=== PATIENT | male | born 1935 | race Caucasian/White ===

== ENCOUNTER 2019-09-09 18:18 | Inpatient (IN) | payer OTHER ==
--- OUTSIDE RECORDS SUMMARY | 2019-09-09 18:21 | XMS REPORT ---
:1935 [facility] Jose Stephens. [address] [place] [address] Care Team Providers Name Role Phone Unavailable Unavailable Unavailable Payers Payer Name Policy Type Policy Number Effective Date Expiration Date Problems This patient has no known problems. Allergies, Adverse Reactions, Alerts Allergy Name Allergy Status Severity Reaction(s) Onset Inactive Treating Comments Type Date Date Clinician Penicillins DA Active U 2019-08 00:00:0 0 Medications This patient has no known medications. Results Test Description Test Time Test Comments Text Results Atomic Results Result Comments BASIC METABOLIC PANEL 2019-09-04 06:28:00 Test Item Value Reference Range Comments SODIUM (test code=NA) 141 MMOL/L 137-145 POTASSIUM (test code=K) 3.5 MMOL/L 3.5-5.1 CHLORIDE (test code=CL) 106 MMOL/L 98-107 CARBON DIOXIDE (test code=CO2) 26 MMOL/L 22-30 GLUCOSE (test code=GLU) 124 MG/DL 74-106 BLOOD UREA NITROGEN (test 18 MG/DL 9-20 code=BUN) GLOMERULAR FILTRATION RATE (test > 60 Reporting units: ml/min/1.73 m2 code=GFR) (Modified MDRD Formula)Reference Range: > or=60 ml/min/1.73 m2 CREATININE (test code=CREAT) 1.10 MG/DL 0.66-1.25 CALCIUM (test code=CA) 9.5 MG/DL 8.4-10.2 Comments to Country Singer: NURSE WILL BRING SPECIMEN TO LABIs this a LINE draw? NLIPID PROFILE (CORONARY RISK)2019-09-04 06:28:00 Test Item Value Reference Range Comments TRIGLYCERIDES (test code=TRIG) 64 MG/DL TRIGLYCERIDES REFERENCE RANGE:Normal: <150 mg/dLBorderline High: 150-199 mg/dLHigh: 200-499 mg/dLVery High: >=500 mg/dL CHOLESTEROL (test code=CHOL) 167 MG/DL <200 HDL CHOLESTEROL (test 56 MG/DL 40-59 code=HDL) LIPOPROTEIN LDL (test 100 MG/DL 0-99 code=LDL) OPTIMAL.........<100 mg/dLNEAR OPTIMAL/ABOVE OPTIMAL.........100-129 mg/dL BORDERLINE HIGH.........130-159 mg/dL HIGH.........160-189 mg/dL VERY HIGH.........>/=190 mg/dL Comments to Country Singer: NURSE WILL BRING SPECIMEN TO LABIs this a LINE draw? [id number] 06:28:00 Test Item Value Reference Range Comments MAGNESIUM (test code=MAG) 2.2 MG/DL 1.6-2.3 Comments to Country Singer: NURSE WILL BRING SPECIMEN TO LABIs this a LINE draw? NBASIC METABOLIC [id number] 06:17:00 Test Item Value Reference Range Comments SODIUM (test code=NA) 141 MMOL/L 137-145 POTASSIUM (test code=K) 3.5 MMOL/L 3.5-5.1 CHLORIDE (test code=CL) 106 MMOL/L 98-107 CARBON DIOXIDE (test code=CO2) 26 MMOL/L 22-30 GLUCOSE (test code=GLU) 124 MG/DL 74-106 BLOOD UREA NITROGEN (test 18 MG/DL 9-20 code=BUN) GLOMERULAR FILTRATION RATE > 60 Reporting units: ml/min/1.73 (test code=GFR) m2 (Modified MDRD Formula)Reference Range: > or=60 ml/min/1.73 m2 CREATININE (test code=CREAT) 1.10 MG/DL 0.66-1.25 CALCIUM (test code=CA) 9.5 MG/DL 8.4-10.2 Comments to Country Singer: NURSE WILL BRING SPECIMEN TO LABIs this a LINE draw? NLIPID PROFILE (CORONARY RISK)2019-09-04 06:17:00 Test Item Value Reference Range Comments TRIGLYCERIDES (test code=TRIG) 64 MG/DL TRIGLYCERIDES REFERENCE RANGE:Normal: <150 mg/dLBorderline High: 150-199 mg/dLHigh: 200-499 mg/dLVery High: >=500 mg/dL CHOLESTEROL (test code=CHOL) 167 MG/DL <200 HDL CHOLESTEROL (test 56 MG/DL 40-59 code=HDL) LIPOPROTEIN LDL (test MG/DL 0-99 code=LDL) Comments to Country Singer: NURSE WILL BRING SPECIMEN TO LABIs this a LINE draw? [id number] 06:17:00 Test Item Value Reference Range Comments MAGNESIUM (test code=MAG) 2.2 MG/DL 1.6-2.3 Comments to Country Singer: NURSE WILL BRING SPECIMEN TO LABIs this a LINE draw? NBASIC METABOLIC [id number] 06:16:00 Test Item Value Reference Range Comments SODIUM (test code=NA) 141 MMOL/L 137-145 POTASSIUM (test code=K) 3.5 MMOL/L 3.5-5.1 CHLORIDE (test code=CL) 106 MMOL/L 98-107 CARBON DIOXIDE (test code=CO2) 26 MMOL/L 22-30 GLUCOSE (test code=GLU) MG/DL 74-106 BLOOD UREA NITROGEN (test MG/DL 9-20 code=BUN) GLOMERULAR FILTRATION RATE > 60 Reporting units: ml/min/1.73 (test code=GFR) m2 (Modified MDRD Formula)Reference Range: > or=60 ml/min/1.73 m2 CREATININE (test code=CREAT) 1.10 MG/DL 0.66-1.25 CALCIUM (test code=CA) MG/DL 8.7-9.7 Comments to Country Singer: NURSE WILL BRING SPECIMEN TO LABIs this a LINE draw? NLIPID PROFILE (CORONARY RISK)2019-09-04 06:16:00 Test Item Value Reference Range Comments TRIGLYCERIDES (test code=TRIG) MG/DL CHOLESTEROL (test code=CHOL) 167 MG/DL <200 HDL CHOLESTEROL (test code=HDL) MG/DL 40-59 LIPOPROTEIN LDL (test code=LDL) MG/DL 0-99 Comments to Country Singer: NURSE WILL BRING SPECIMEN TO LABIs this a LINE draw? [id number] 06:16:00 Test Item Value Reference Range Comments MAGNESIUM (test code=MAG) MG/DL 1.6-2.3 Comments to Country Singer: NURSE WILL BRING SPECIMEN TO LABIs this a LINE draw? NBASIC METABOLIC [id number] 06:14:00 Test Item Value Reference Range Comments SODIUM (test code=NA) 141 MMOL/L 137-145 POTASSIUM (test code=K) 3.5 MMOL/L 3.5-5.1 CHLORIDE (test code=CL) 106 MMOL/L 98-107 CARBON DIOXIDE (test code=CO2) MMOL/L 22-30 GLUCOSE (test code=GLU) MG/DL 74-106 BLOOD UREA NITROGEN (test code=BUN) MG/DL 9-20 GLOMERULAR FILTRATION RATE (test code=GFR) CREATININE (test code=CREAT) MG/DL 0.66-1.25 CALCIUM (test code=CA) MG/DL 8.7-9.7 Comments to Country Singer: NURSE WILL BRING SPECIMEN TO LABIs this a LINE draw? NLIPID PROFILE (CORONARY RISK)2019-09-04 06:14:00 Test Item Value Reference Range Comments TRIGLYCERIDES (test code=TRIG) MG/DL CHOLESTEROL (test code=CHOL) MG/DL <200 HDL CHOLESTEROL (test code=HDL) MG/DL 40-59 LIPOPROTEIN LDL (test code=LDL) MG/DL 0-99 Comments to Country Singer: NURSE WILL BRING SPECIMEN TO LABIs this a LINE draw? [id number] 06:14:00 Test Item Value Reference Range Comments MAGNESIUM (test code=MAG) MG/DL 1.6-2.3 Comments to Country Singer: NURSE WILL BRING SPECIMEN TO LABIs this a LINE draw? NBASIC METABOLIC [id number] 06:13:00 Test Item Value Reference Range Comments SODIUM (test code=NA) MMOL/L 137-145 POTASSIUM (test code=K) MMOL/L 3.5-5.1 CHLORIDE (test code=CL) 106 MMOL/L 98-107 CARBON DIOXIDE (test code=CO2) MMOL/L 22-30 GLUCOSE (test code=GLU) MG/DL 74-106 BLOOD UREA NITROGEN (test code=BUN) MG/DL 9-20 GLOMERULAR FILTRATION RATE (test code=GFR) CREATININE (test code=CREAT) MG/DL 0.66-1.25 CALCIUM (test code=CA) MG/DL 8.7-9.7 Comments to Country Singer: NURSE WILL BRING SPECIMEN TO LABIs this a LINE draw? NLIPID PROFILE (CORONARY RISK)2019-09-04 06:13:00 Test Item Value Reference Range Comments TRIGLYCERIDES (test code=TRIG) MG/DL CHOLESTEROL (test code=CHOL) MG/DL <200 HDL CHOLESTEROL (test code=HDL) MG/DL 40-59 LIPOPROTEIN LDL (test code=LDL) MG/DL 0-99 Comments to Country Singer: NURSE WILL BRING SPECIMEN TO LABIs this a LINE draw? [id number] 06:13:00 Test Item Value Reference Range Comments MAGNESIUM (test code=MAG) MG/DL 1.6-2.3 Comments to Country Singer: NURSE WILL BRING SPECIMEN TO LABIs this a LINE draw? NPROTHROMBIN [id number] 05:51:00 Test Item Value Reference Range Comments PROTHROMBIN TIME PATIENT (test 10.2 SECONDS 9.6-11.6 code=PTP) INTERNATIONAL NORMAL RATIO 1.0 0.8-1.1 The INR is to be used only (test code=INR) for monitoring oral anticoagulanttherapy. INDICATION INR VALUE 1. Prophylaxis, deep venous thrombosis, including high risk surgery. 2.0 - 3.0 2. Prophylaxis, deep venous thrombosis, hip surgery, treatment for deep venous thrombosis or pulmonary prevention of systemic embolism in patients with valvular heart disease, atrial fibrillation, tissue heart valve, or acute myocardial infarction. 2.0 - 3.0 3. Mechanical prosthesis heart valves, recurrent systemic embolism. 3.0 - 4.5 Comments to Country Singer: NURSE WILL BRING SPECIMEN TO LABPTT [id number] 05:51:00 Test Item Value Reference Range Comments PTT ACTIVATED (test code=APTT) 27.3 SECONDS 22.0-33.0 Comments to Country Singer: NURSE WILL BRING SPECIMEN TO L[facility] W/AUTO [id number] 05:31:00 Test Item Value Reference Range Comments WHITE BLOOD CELL (test code=WBC) 7.1 K/MM3 3.8-9.8 RED BLOOD CELL (test code=RBC) 4.62 M/MM3 3.95-5.67 HEMOGLOBIN (test code=HGB) 13.6 G/DL 12.4-16.7 HEMATOCRIT (test code=HCT) 42.1 % 35.9-49.5 MEAN CELL VOLUME (test code=MCV) 91 fL 81.7-96.1 MEAN CELL HGB (test code=MCH) 29.4 pg 27.6-33.2 MEAN CELL HGB CONCETRATION (test code=MCHC) 32.3 % 32.9-35.5 RED CELL DISTRIBUTION WIDTH (test code=RDW) 13.7 % 12.1-15.2 PLATELET COUNT (test code=PLT) 248 K/MM3 129-368 MEAN PLATELET VOLUME (test code=MPV) 8.3 fl 7.4-10.4 NEUTROPHIL % (test code=NT%) 70.9 % 43-75 IMMATURE GRANULOCYTE % (test code=IG%) 1.0 % 0.0-2.0 LYMPHOCYTE % (test code=LY%) 12.7 % 14-44 MONOCYTE % (test code=MO%) 11.7 % 4-13 EOSINOPHIL % (test code=EO%) 2.7 % 0-6 BASOPHIL % (test code=BA%) 1.0 % 0-2 NUCLEATED RBC % (test code=NRBC%) 0.0 % 0-1.0 NEUTROPHIL # (test code=NT#) 5.01 K/mm3 2.0-7.6 IMMATURE GRANULOCYTE # (test code=IG#) 0.07 x10 3/uL 0-0.03 LYMPHOCYTE # (test code=LY#) 0.90 K/mm3 1.0-3.8 MONOCYTE # (test code=MO#) 0.83 K/mm3 0.1-0.8 EOSINOPHIL # (test code=EO#) 0.19 K/mm3 0.0-0.2 BASOPHIL # (test code=BA#) 0.07 K/mm3 0.0-0.2 NUCLEATED RBC # (test code=NRBC#) 0.00 K/mm3 0.0-0.1
[2019-09-09] MEDS ORDERED: ONDANSETRON 4 MG/2 ML VIAL ONE ×2 (19:25→21:35)
[2019-09-09] MEDS ORDERED: NA CHLORIDE 0.9% 500 ML ONE (19:25)
[2019-09-09] MEDS ORDERED: FAMOTIDINE 20 MG/2 ML VIAL IV ONE (19:25)
[2019-09-09 19:32] LABS: Absolute Lymphocytes (CBC) 0.5 K/uL (0.7-4.9); Basophils % 0.3 % (0-1.3); Hematocrit 41.4 % (39.6-49.0); Lymphocytes % 6.1 % (15.3-44.8); MPV 6.7 fL (7.6-11.3); RBC Red Blood Cell Count 4.77 M/uL (4.33-5.43)
[2019-09-09 19:44] LABS: Albumin 3.8 g/dL (3.4-5.0); Bilirubin Direct 0.3 mg/dL (0-0.2); Bilirubin Total 0.8 mg/dL (0.2-1.0); Potassium 3.4 mmol/L (3.5-5.1); Protein, Total 7.6 g/dL (6.4-8.2)
--- NOTE | 2019-09-09 19:48 | RAD REPORT ---
EXAM DESCRIPTION: RAD - Chest Single View - 09/09/2019 7:38 pm CLINICAL HISTORY: abdominal pain Chest pain. COMPARISON: Chest Pa And Lat (2 Views) dated 03/10/2018; Chest Single View dated 11/19/2016 FINDINGS: Portable technique limits examination quality. The lungs are grossly clear. The heart is mildly prominent in size. No displaced fractures. IMPRESSION: No acute intrathoracic process suspected.
--- NOTE | 2019-09-09 20:38 | RAD REPORT ---
EXAM DESCRIPTION: CTAbdomen Pelvis W Contrast - 09/09/2019 8:28 pm CLINICAL HISTORY: Abdominal pain. ABD PAIN COMPARISON: No comparisons TECHNIQUE: Biphasic CT imaging of the abdomen and pelvis was performed with 100 ml non-ionic IV cont rast. All CT scans are performed using dose optimization technique as appropriate and may include automated exposure control or mA/KV adjustment according to patient size. FINDINGS: Linear atelectasis is present in the left lung base. The liver demonstrates several hypodense lesions compatible with benign cysts. No aggressive liver le connie or biliary dilatation seen. The spleen, pancreas, adrenal glands and kidneys show no acute proce ss. Benign appearing bilateral renal cysts are present. Multiple dilated small bowel loops are present compatible with moderate mechanical small-bowel obstru ction. The loops are dilated to 4.7 cm maximally. A transition is noted along the left aspect of a la rge ventral hernia containing colon, small bowel and fat. This is presumed to represent a large william tomal hernia. Additionally a small ventral hernia is present to the right of midline containing a sma ll section of the small intestine. No evidence of pneumatosis. No evidence of significant lymphadenop athy. No free air or free fluid. No abscess. No suspicious bony findings. IMPRESSION: Moderately severe mechanical small bowel obstruction is present. 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
[2019-09-09] MEDS ORDERED: CIPROFLOXACIN 400mg IV 400 MG/200 ML BAG IV ONE (21:30)
--- NOTE | 2019-09-09 21:38 | ER ---
Nurse's Notes [facility] Name: Pernell Serrano Age: 83 yrs Sex: Male : 1935 Arrival Date: 09/09/2019 Time: 18:22 Bed 8 Private MD: Diagnosis: Small Bowel Obstruction;Nausea and vomiting Presentation: 09/09 18:34 Presenting complaint: states: pt has colostomy and has not been passing stool like iw he normally does, he has been belching and vomited once , had a heart cath Friday and had no stool, small amount of stool Friday, last night had large amount of stool, nothing today since 2 am. Transition of care: patient was not received from another setting of care. Onset of symptoms was September 04, 2019. Risk Assessment: Do you want to hurt yourself or someone else? Patient reports no desire to harm self or others. Initial Sepsis Screen: Does the patient meet any 2 criteria? No. Patient's initial sepsis screen is negative. Does the patient have a suspected source of infection? No. Patient's initial sepsis screen is negative. Care prior to arrival: None. 18:34 Method Of Arrival: Wheelchair iw 18:34 Acuity: ROBIN 3 iw Triage Assessment: 19:31 General: Appears in no apparent distress. Behavior is calm, cooperative. Pain: Denies rv pain. Historical: - Allergies: 18:37 PENICILLINS; iw - Home Meds: 18:39 losartan 100 mg oral tab 1 tab once daily [Active]; amlodipine 10 mg tab 1 tab once iw daily [Active]; aspirin 81 mg Oral TbEC 1 tab once daily [Active]; Colace oral oral [Active]; - PMHx: 18:39 colon cancer; Hypertension; iw - PSHx: 18:39 Colostomy; iw - Immunization history:: Adult Immunizations. - Social history:: Smoking status: Patient denies any tobacco usage or history of. - Ebola Screening: : Patient negative for fever greater than or equal to 101.5 degrees Fahrenheit, and additional compatible Ebola Virus Disease symptoms Patient denies exposure to infectious person Patient denies travel to an Ebola-affected area in the 21 days before illness onset No symptoms or risks identified at this time. Screenin:52 Abuse screen: Denies threats or abuse. Nutritional screening: No deficits noted. tw2 Tuberculosis screening: No symptoms or risk factors identified. Fall Risk Secondary diagnosis (15 points) impaired mobility. Assessment: 20:19 General: Appears in no apparent distress. Pain: Denies pain. Neuro: Level of rv Consciousness is awake, alert, obeys commands, Oriented to person, place, time, situation. Cardiovascular: Patient's skin is warm and dry. Respiratory: Airway is patent. GI: Reports bloating, diarrhea, gaseousness. GI: Colostomy site is clean and dry. Ostomy appliance is intact. Derm: Skin is intact. 20:51 Reassessment: JUST CAME BACK FROM CT SCAN. FAMILY UPDATED ON WAITING TIME. AWAITING rv RESULT OF CT SCAN. 21:35 Reassessment: Patient appears in no apparent distress at this time. Patient and/or rv family updated on plan of care and expected duration. Pain level reassessed. Patient is alert, oriented x 3, equal unlabored respirations, skin warm/dry/pink. PATIENT AND FAMILY UPDATED ON THE RESULTS OF DIAGNOSTICS. VERA PAGE AT BEDSIDE. PLAN OF CARE IS EXPLAINED. PATIENT AND FAMILY AGREED. Vital Signs: 18:39 BP 141 / 91; Pulse 98; Resp 16; Temp 98.5; Pulse Ox 98% on R/A; Weight 104.33 kg; iw Height 6 ft. 0 in. (182.88 cm); 19:30 BP 126 / 85; Pulse 88; Resp 17; Pulse Ox 93% on R/A; rv 20:00 BP 145 / 94; Pulse 86; Resp 17; Pulse Ox 93% on R/A; rv 20:47 BP 144 / 97; Pulse 90; Resp 18; Pulse Ox 94% on R/A; rv 21:34 BP 153 / 102; Pulse 101; Resp 26; Pulse Ox 97% on R/A; rv 22:00 BP 152 / 97; Pulse 98; Resp 16; Pulse Ox 96% on R/A; rv 22:30 BP 144 / 95; Pulse 95; Resp 17; Pulse Ox 96% on R/A; rv 23:30 BP 147 / 90; Pulse 87; Resp 16; Pulse Ox 96% on R/A; rv 09/10 00:00 BP 111 / 71; Pulse 95; Resp 16; Pulse Ox 96% on R/A; rv 00:52 BP 148 / 92; Pulse 89; Resp 17; Pulse Ox 95% on R/A; rv 09/09 18:39 Body Mass Index 31.19 (104.33 kg, 182.88 cm) iw ED Course: 09/09 18:22 Patient arrived in ED. mr 18:37 Triage completed. iw 18:39 Arm band placed on. iw 18:47 Bed in low position. Call light in reach. Adult w/ patient. tw2 18:48 Vera Talavera PA is PHCP. cp 18:48 Michael Van MD is Attending Physician. cp 19:03 Jake Abraham, SPENCER is Primary Nurse. rv 19:30 XRAY Chest (1 view) Sent. rv 19:30 Inserted saline lock: 18 gauge in right antecubital area, using aseptic technique. rv Blood collected. 19:39 XRAY Chest (1 view) In Process Unspecified. EDMS 19:52 Vera Montez MD is Attending Physician. cp 20:28 CT Abd/Pelvis - IV Contrast Only In Process Unspecified. EDMS 21:34 NGT: inserted 16 Fr. via right nare. verified placement of air over stomach, verified rv return of gastric contents, to intermittent suction. Returned gastric contents. Patient tolerated well. 21:37 Nazario Oro MD is Hospitalizing Provider. cp 09/10 00:52 No provider procedures requiring assistance completed. Patient admitted, IV remains in rv place. Administered Medications: 09/09 19:29 Drug: Pepcid 20 mg Route: IVP; Site: right antecubital; rv 21:36 Follow up: Response: No adverse reaction rv 19:30 Drug: Zofran 4 mg Route: IVP; Site: right antecubital; rv 21:35 Follow up: Response: No adverse reaction rv 19:30 Drug: NS 0.9% 250 ml Route: IV; Rate: bolus; Site: right antecubital; rv 21:36 Follow up: IV Status: Completed infusion; IV Intake: 250ml rv 21:33 Drug: Cipro 400 mg Volume: 200 ml; Route: IVPB; Infused Over: 60 mins; Site: right rv antecubital; 09/10 00:56 Follow up: IV Status: Completed infusion rv 09/09 21:37 Drug: Zofran 2 mg Route: IVP; Site: right antecubital; rv 09/10 00:56 Follow up: Response: No adverse reaction rv Intake: 09/09 21:36 IV: 250ml; Total: 250ml. rv Outcome: 21:38 Decision to Hospitalize by Provider. rosalino 09/10 00:52 Admitted to Tele accompanied by tech, via wheelchair, room 401, with chart, Report rv called to ja red Condition: good Discharge instructions given to patient, family, Instructed on the need for admit, Demonstrated understanding of instructions. 00:56 Patient left the ED. rv Signatures: Dispatcher [employer] NICOLE FoleyCherrie Irene, RN RN iw Vera Talavera PA PA Mery Jordan RN RN tw2 Jake Abraham RN RN rv Corrections: (The following items were deleted from the chart) 09/09 18:37 18:34 Presenting complaint: states: pt has not passing stool like he normally iw does, he has been belching and vomited once , had a heart cath Friday and had no stool, small amount of stool Friday, last night had large amount of stool, nothing today since 2 am iw
--- NOTE | 2019-09-09 21:38 | EDPHYS ---
Physician Documentation [facility] Name: Pernell Serrano Age: 83 yrs Sex: Male : 1935 Arrival Date: 09/09/2019 Time: 18:22 Bed 8 Private MD: Milan Lopez HPI: 09/09 19:20 This 83 yrs old Male presents to ER via Wheelchair with complaints of cp Colostomy problem. 19:20 The patient presents with abdominal pain. cp 19:20 Onset: The symptoms/episode began/occurred this morning. The symptoms do not radiate. cp Associated signs and symptoms: Pertinent positives: nausea, vomiting, Pertinent negatives: chest pain, fever, shortness of breath, testicular pain. The symptoms are described as constant. Historical: - Allergies: 18:37 PENICILLINS; iw - Home Meds: 18:39 losartan 100 mg oral tab 1 tab once daily [Active]; amlodipine 10 mg tab 1 tab once iw daily [Active]; aspirin 81 mg Oral TbEC 1 tab once daily [Active]; Colace oral oral [Active]; - PMHx: 18:39 colon cancer; Hypertension; iw - PSHx: 18:39 Colostomy; iw - Immunization history:: Adult Immunizations. - Social history:: Smoking status: Patient denies any tobacco usage or history of. - Ebola Screening: : Patient negative for fever greater than or equal to 101.5 degrees Fahrenheit, and additional compatible Ebola Virus Disease symptoms Patient denies exposure to infectious person Patient denies travel to an Ebola-affected area in the 21 days before illness onset No symptoms or risks identified at this time. ROS: 19:25 Constitutional: Negative for body aches, chills, fever. cp 19:25 Eyes: Negative for injury, pain, redness, and discharge. cp 19:25 ENT: Negative for drainage from ear(s), ear pain, sore throat, difficulty swallowing, difficulty handling secretions. 19:25 Cardiovascular: Negative for chest pain. 19:25 Respiratory: Negative for cough, shortness of breath, wheezing. 19:25 Abdomen/GI: Positive for abdominal pain, nausea, vomiting, Negative for diarrhea. 19:25 Back: Negative for radiated pain. 19:25 : Negative for urinary symptoms. 19:25 Skin: Negative for rash. 19:25 Neuro: Negative for altered mental status, headache, weakness. 19:25 All other systems are negative. Exam: 19:35 Constitutional: The patient appears in no acute distress, alert, awake, cp non-diaphoretic, non-toxic, well developed, well nourished, uncomfortable. 19:35 Head/Face: Normocephalic, atraumatic. cp 19:35 Eyes: Periorbital structures: appear normal, Conjunctiva: normal, no exudate, no injection, Sclera: no appreciated abnormality, Lids and lashes: appear normal, bilaterally. 19:35 ENT: External ear(s): are unremarkable, Nose: is normal, Mouth: Lips: moist, Oral mucosa: pink and intact, moist, Posterior pharynx: Airway: no evidence of obstruction, patent. 19:35 Chest/axilla: Inspection: normal, Palpation: is normal, no crepitus, no tenderness. 19:35 Cardiovascular: Rate: normal, Rhythm: regular. 19:35 Respiratory: the patient does not display signs of respiratory distress, Respirations: normal, no use of accessory muscles, no retractions, no splinting, no tachypnea, labored breathing, is not present, Breath sounds: are clear throughout, no decreased breath sounds, no stridor, no wheezing. 19:35 Abdomen/GI: Inspection: distension, that is mild, in the abdomen diffusely, colostomy LLQ abdomen, Bowel sounds: active, all quadrants, Palpation: soft, in all quadrants, moderate abdominal tenderness, in all quadrants, rebound tenderness, is not appreciated, voluntary guarding, is elicited in all quadrants. 19:35 Neuro: Orientation: to person, place \T\ time. Mentation: is normal. 21:16 ECG was reviewed by the Attending Physician. cp Vital Signs: 18:39 BP 141 / 91; Pulse 98; Resp 16; Temp 98.5; Pulse Ox 98% on R/A; Weight 104.33 kg; iw Height 6 ft. 0 in. (182.88 cm); 19:30 BP 126 / 85; Pulse 88; Resp 17; Pulse Ox 93% on R/A; rv 20:00 BP 145 / 94; Pulse 86; Resp 17; Pulse Ox 93% on R/A; rv 20:47 BP 144 / 97; Pulse 90; Resp 18; Pulse Ox 94% on R/A; rv 21:34 BP 153 / 102; Pulse 101; Resp 26; Pulse Ox 97% on R/A; rv 22:00 BP 152 / 97; Pulse 98; Resp 16; Pulse Ox 96% on R/A; rv 22:30 BP 144 / 95; Pulse 95; Resp 17; Pulse Ox 96% on R/A; rv 23:30 BP 147 / 90; Pulse 87; Resp 16; Pulse Ox 96% on R/A; rv 09/10 00:00 BP 111 / 71; Pulse 95; Resp 16; Pulse Ox 96% on R/A; rv 00:52 BP 148 / 92; Pulse 89; Resp 17; Pulse Ox 95% on R/A; rv 09/09 18:39 Body Mass Index 31.19 (104.33 kg, 182.88 cm) iw MDM: 09/09 19:03 Patient medically screened. cp 21:15 Data reviewed: vital signs, nurses notes, lab test result(s), EKG, radiologic studies, cp CT scan. Physician consultation: Nazario Oro MD was called at 20:10, was contacted at 20:15, regarding admission, to the telemetry unit. patient's condition. 09/09 19:03 Order name: Basic Metabolic Panel; Complete Time: 19:52 cp 09/09 21:01 Interpretation: Normal except: K 3.4; GLUC 141; GFR 54. cp 09/09 19:03 Order name: CBC with Diff; Complete Time: 19:52 cp 09/09 21:03 Interpretation: Normal except: MPV 6.7; RAZA% 84.6; LYM% 6.1; LYMA 0.5. cp 09/09 19:03 Order name: Creatinine for Radiology; Complete Time: 19:52 cp 09/09 19:03 Order name: Hepatic Function; Complete Time: 19:52 cp 09/09 19:03 Order name: Lipase; Complete Time: 19:52 cp 09/10 00:44 Order name: Basic Metabolic Panel EDMS 09/09 19:14 Order name: XRAY Chest (1 view); Complete Time: 19:52 cp 09/10 00:44 Order name: Basic Metabolic Panel EDMS 09/10 00:44 Order name: CBC with Automated Diff EDMS 09/10 00:44 Order name: CBC with Automated Diff EDMS 09/10 00:44 Order name: Lipase EDOK 09/10 00:44 Order name: Lipase EDOK 09/10 00:44 Order name: Liver (Hepatic) Function EDOK 09/10 00:44 Order name: Liver (Hepatic) Function EDOK 09/09 19:03 Order name: IV Saline Lock; Complete Time: 19:30 cp 09/09 19:03 Order name: Labs collected and sent; Complete Time: 19:30 cp 09/09 19:14 Order name: EKG; Complete Time: 19:15 cp 09/09 19:14 Order name: EKG - Nurse/Tech; Complete Time: 21:05 cp 09/09 19:53 Order name: CT Abd/Pelvis - IV Contrast Only; Complete Time: 20:59 cp 09/09 21:01 Interpretation: Report reviewed. cp 09/09 21:05 Order name: NPO; Complete Time: 21:25 cp 09/09 21:05 Order name: NG Tube; Complete Time: 21:25 cp 09/10 00:44 Order name: CONS Physician Consult EDOK 09/10 00:44 Order name: NPO EDOK 09/10 00:44 Order name: NPO EDOK EC:16 Rate is 90 beats/min. Rhythm is regular. NC interval is prolonged at 230 msec. QRS cp interval is normal. QT interval is normal. Interpreted by me. Reviewed by me. Administered Medications: 19:29 Drug: Pepcid 20 mg Route: IVP; Site: right antecubital; rv 21:36 Follow up: Response: No adverse reaction rv 19:30 Drug: Zofran 4 mg Route: IVP; Site: right antecubital; rv 21:35 Follow up: Response: No adverse reaction rv 19:30 Drug: NS 0.9% 250 ml Route: IV; Rate: bolus; Site: right antecubital; rv 21:36 Follow up: IV Status: Completed infusion; IV Intake: 250ml rv 21:33 Drug: Cipro 400 mg Volume: 200 ml; Route: IVPB; Infused Over: 60 mins; Site: right rv antecubital; 09/10 00:56 Follow up: IV Status: Completed infusion rv 09/09 21:37 Drug: Zofran 2 mg Route: IVP; Site: right antecubital; rv 09/10 00:56 Follow up: Response: No adverse reaction rv Disposition: 09:25 Co-signature as Attending Physician, Milan Montez MD I agree with the assessment and jorge plan of care. Disposition: 09/09/19 21:38 Hospitalization ordered by Nazario Oro for Inpatient Admission. Preliminary diagnosis are Small Bowel Obstruction, Nausea and vomiting. - Bed requested for Telemetry/MedSurg (Inpatient). - Status is Inpatient Admission. rv - Condition is Stable. - Problem is new. - Symptoms have improved. UTI on Admission? No Signatures: Dispatcher [employer] EDOK Milan Montez MD MD cha Williams, Irene, RN RN Milan Talavera PA PA cp Jake Abraham RN RN rv Cristiane Garcia ar5 Corrections: (The following items were deleted from the chart) 09/09 21:03 21:01 Normal except: MPV 6.7; RAZA% 84.6; LYM% 6.1. cp cp 09/10 00:25 09/09 21:38 Hospitalization Ordered by Nazario Oro MD for Inpatient Admission. ar5 Preliminary diagnosis is Small Bowel Obstruction; Nausea and vomiting. Bed requested for Telemetry/MedSurg (Inpatient). Status is Inpatient Admission. Condition is Stable. Problem is new. Symptoms have improved. UTI on Admission? No. cp 09/10 00:56 00:25 09/09/2019 21:38 Hospitalization Ordered by Nazario Oro MD for Inpatient rv Admission. Preliminary diagnosis is Small Bowel Obstruction; Nausea and vomiting. Bed requested for Telemetry/MedSurg (Inpatient). Status is Inpatient Admission. Condition is Stable. Problem is new. Symptoms have improved. UTI on Admission? No. ar5
[2019-09-10] MEDS ORDERED: ONDANSETRON 4 MG/2 ML VIAL IV PRN (00:41)
[2019-09-10] MEDS ORDERED: MORPHINE 4 MG/ML SYR IV PRN (00:41)
[2019-09-10 01:19] VITALS: O2SAT 95
[2019-09-10] MEDS: D5 0.45 NS 1,000 ML IV SCH ×2 (01:34→22:09)
[2019-09-10] MEDS: METRONIDAZOLE 500mg IVPB 500 MG/100 ML BAG IV SCH ×3 (01:37→17:49)
[2019-09-10 02:10] VITALS: BMI 31.1
[2019-09-10 04:55] LABS: Absolute Lymphocytes (CBC) 0.7 K/uL (0.7-4.9); Basophils % 0.4 % (0-1.3); Hematocrit 37.2 % (39.6-49.0); Lymphocytes % 7.3 % (15.3-44.8); MPV 6.6 fL (7.6-11.3); RBC Red Blood Cell Count 4.24 M/uL (4.33-5.43)
[2019-09-10 05:18] LABS: Albumin 3.2 g/dL (3.4-5.0); Bilirubin Direct 0.2 mg/dL (0-0.2); Bilirubin Total 0.7 mg/dL (0.2-1.0); Potassium 3.6 mmol/L (3.5-5.1); Protein, Total 6.7 g/dL (6.4-8.2)
[2019-09-10 05:24] LABS: Urine Appearance CLEAR; Urine Bilirubin NEGATIVE (NEG); Urine Blood NEGATIVE (NEG); Urine Color YELLOW; Urine Glucose NEGATIVE (NEG); Urine Protein NEGATIVE (NEG); Urine Specific Gravity >=1.030 (1.005-1.030); Urine Urobilinogen 0.2 mg/dL (0.2-1.0); Urine pH 7.5 (5.0-7.0)
[2019-09-10 05:46] LABS: Urine Microscopic Reflex NO UMIC
[2019-09-10] MEDS: CIPROFLOXACIN 400mg IV 400 MG/200 ML BAG IV SCH ×2 (08:01→22:09)
--- NOTE | 2019-09-10 08:35 | EKG ---
Test Date: 2019-09-09 Test Time: 21:00:11 Director Business Development: LESLIE MEASUREMENT RESULTS: Intervals: Rate: 90 OH: 230 QRSD: 94 QT: 384 QTc: 469 [place]: P: 0 OH: 230 QRS: -2 T: -16 INTERPRETIVE STATEMENTS: Sinus rhythm with 1st degree AV block Inferior infarct, age undetermined Abnormal ECG Compared to ECG 11/19/2016 00:04:03 First degree AV block now present Myocardial infarct finding still present Electronically Signed On 09-10-19 08:34:37 BILLING ADJUDICATOR by Pérez Smith
--- NOTE | 2019-09-10 14:40 | P.HP ---
Date of Service: 09/10/19 PC: Specifically new to the emergency room with severe pain for diagnosis and treatment. HPC: The patient has a CT scan in about a week ago with oral contrast. After a time to be in the field abdominal discomfort in his abdomen. It has been causing intermittent bouts of pain and discomfort. Last night became various, and he also noted that his colostomy has not been working. Presented for examination PMH: Coronary artery disease PSHx: Previous abdominal perineal resection with end colostomy for colon cancer. 5 years ago. Being followed in [facility] [place]. SOC: Allergic to penicillin SYS REVIEW: No wheezes, shortness of breath. No chest pain or palpitations. Denies any real urinary complaints. Colostomies sees me working well, but has noticed his abdomen has gotten bigger over the last couple years. O/E awake alert bowel sounds are stable HEENT: Nasogastric tube in place with minimal drainage Chest: Chest fluid equal bilaterally ABD: Has a colostomy, looks good, abdomen is soft, nontender no masses are palpable no evidence of any incarceration of this parastomal hernia LOCO: Intact DATA: CT scan shows possible parastomal hernia or other cause of the early SBO IMPRESSION: SBO appears to have resolved PLAN: This patient, who presented with severe abdominal pain and the possibility of a parastomal hernia appears to have had the issue result. We will place a middle down through his NG tube, removed the NG tube, start him on some clear liquids and most likely discharge him in a.m.. In the interim time. He will receive IV fluids for dehydration. This plan has been explained to him and he is quite content as are his family.
[2019-09-10] MEDS ORDERED: MINERAL OIL 30 ML UCUP PO ONE ×2 (15:58→23:00)
--- NOTE | 2019-09-10 21:06 | HP ---
Date of Admission: 09/10/2019 History Of Present Illness: An 83-year-old male who had a colostomy bag that was placed because of s urgery of colon cancer. He has been doing well, but he presented to the emergency room the day of hi s admission because of abdominal pain, generalized and he thought that the colostomy bag is not worki ng. His evaluation, which included an abdominal CAT scan showed a small-bowel obstruction mechanical . No masses were detected by that. The patient had mild nausea, but no vomiting. He voiced no othe r complaints. Review of Systems: Gastrointestinal: As above. Cardiovascular: No complaints. Genitourinary: No complaints. Skeletomuscular: No complaints. Respiratory: No complaints. Neurological: No complaints. Past Medical History: 1.As above, colon cancer, status post resection on colostomy. 2.Hypertension. Social History: No smoking, alcohol, or drug abuse history. Family History: Noncontributing. Medications: Include amlodipine 10 mg p.o. daily, aspirin 81 mg p.o. daily, atorvastatin 10 mg p.o. daily, Colace 100 mg p.o. daily, and losartan 100 mg p.o. daily. Allergies: PENICILLIN. Physical Examination: Vital Signs: Blood pressure 125/70, pulse 80, temperature 97.3. Heart: Regular rate and rhythm. Chest: Clear to auscultation. Abdomen: At the time of examining the patient, it was soft and nontender and his bowel sounds were h eard. Neurologic: Alert, oriented, nonfocal. Grossly intact. Extremities: No known sounds. Peripheral pulses are felt and normal. Pulse oximetry at 95%. 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 Chest x-ray, no acute pathology. Electrocardiogram, sinus rhythm with third-degree AV block a nd inferior Q-waves. Laboratory Data: White cell count 9.5, hemoglobin 12.6, hematocrit 37.2, and platelets 249. Sodium 142, potassium 3.6, chloride 109, bicarb 28, BUN 13, creatinine 1.19, GFR 58, albumin 3.2. Assessment And Plan: Small bowel obstruction, most likely from adhesions. The patient has been put n.p.o. and Dr. Graham is being consulted to see the patient. We also put the patient on prophylaxis Cipro and metronidazole, put him on Zofran for nausea, vomiting. At this time, the patient is doing well. He is also on IV fluids. It seems that his obstruction has resolved with bowel rest. We ni l go ahead and try a liquid diet and if it is well tolerated, expecting discharging the patient in morning. Look orders for details. ANNA/ALINA Voice ID: [id number]
[2019-09-11] MEDS: METRONIDAZOLE 500mg IVPB 500 MG/100 ML BAG IV SCH ×2 (00:33→09:00)
[2019-09-11] MEDS: CIPROFLOXACIN 400mg IV 400 MG/200 ML BAG IV SCH (09:00)
[2019-09-11 12:03] VITALS: BP 134/67; TEMP 97.3
--- NOTE | 2019-09-11 13:22 | DS ---
Date of Discharge: 09/11/2019 History: An 83-year-old male was admitted to the hospital because of small intestinal obstruction, m echanical. When he presented to the emergency room with abdominal pain, patient had colostomy after surgery for colon cancer. Past Medical History: As per admit note. Social History: As per admit note. Family History: As per admit note. Medications: As per admit note. Allergies: PER ADMIT NOTE. Physical Examination: As per admit note. Diagnostic Data: As per admit note. Hospital Course: Patient was admitted to the hospital. He was put n.p.o. We monitored the patient and Dr. Woo of Surgery have seen him with us. We will also put the patient on IV metronidazole a nd Cipro prophylaxis for infection. The patient apparently had possible adhesions that have caused s mall intestine mechanical obstruction with the patient resting and being n.p.o. That mechanical obst ruction was resolved and the patient had good bowel sounds and here his abdominal pain was released. He had after that good bowel motion and passing gases and tolerated liquid diet. At this point, I t hought the patient stable enough after also consulting with Dr. Woo to do so and to follow up with me and to follow up with Dr. Woo as per him. Look discharge orders for details. MFS/MODL Voice ID: [id number] Report ID: [id number]
== END 2019-09-11 12:20 | disposition home or self-care (01) | DRG 390 ==
LOC: ER 18:18 → 4TH 09-10 00:41
PROVIDERS: ADMIT Internal Medicine; ATTEND Internal Medicine
DX: K56.609 Unspecified intestinal obstruction, unspecified as to partial versus complete obstruction (principal); I25.10 Atherosclerotic heart disease of native coronary artery without angina pectoris; Z85.038 Personal history of other malignant neoplasm of large intestine; Z93.3 Colostomy status; Z88.0 Allergy status to penicillin; I10 Essential (primary) hypertension
CPT/HCPCS: 36415; 71045; 74177; 80048; 80076; 81003; 83690; 85025; 93005; 96365; 96366; 96375; 99285; J0744; J2405; J7040; J7799; Q9967

== ENCOUNTER 2023-06-12 14:29 | Emergency (ER) | payer OTHER ==
--- OUTSIDE RECORDS SUMMARY | 2023-06-12 14:31 | XMS REPORT | Continuity of Care Document ---
:1935 Author Organization [facility] t Address [address] [place] [id number] Care Team Providers Name Role Phone [phone] Primary Care Physician Unavailable SYSTEM, PROVIDER NOT IN Attending Clinician Unavailable Nazario Oro Attending Clinician Unavailable BENJAMIN SANCHES Attending Clinician Unavailable BRIAN VARGAS Attending Clinician Unavailable SOHAN COBB Attending Clinician Unavailable Delano Rojas Attending Clinician Unavailable Payers Payer Name Policy Type Policy Number Effective Date Expiration Date S devon MEDICARE PART A [id number] 1999 AND B 00:00:00 AETNA O [id number] 2000 00:00:00 AETNA NON [id number] CONTRACTED 00:00:00 AETNA 53 [id number] [facility] AETNA MEDICARE 53 [id number] Common PPO [facility] Problems Condition Condition Condition Status Onset Resolution Last Treating Co mments Source Name Details Category Date Date Treatment Clinician Date [id number] History of Problem Co mmon pulmonary Spirit embolism - [facility] [id number] Essential Problem Comm on hypertensi Spirit on - [facility] [id number] Pneumonia Problem Com mon of left Spirit lower lobe - [facility] due to [facility] [id number] S/P Problem Common radiation Spirit therapy - [facility] [id number] Other Problem 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 intermedia [facility] recurrence Medica l risk Center (stage T2b-c or [place] 7 or PSA 10-20) [id number] Benign Problem Common prostatic Spirit hyperplasi - [facility] a with [facility] urinary Medical tract Center symptoms [id number] History of Problem Co mmon colon Spirit cancer - [facility] Allergies, Adverse Reactions, Alerts Allergy Allergy Status Severity Reaction(s) Onset Inactive Treating Comm ents Source Name Type Date Date Clinician [place] DA Active U 2020-0 [facility] 09-[facility] 00:[facility]: [address] Pen[place] DA Active U UNKNOWN 2020-0 [facility] ins 09-03 00:00: [address] PENICILL Drug Active Itching 2015-0 MD INS Class 4-24 Anderso 00:00: n 00 PENICILL Drug Active Itching 2015-0 MD INS Class 4-24 Anderso 00:00: n 00 PENICILL Drug Active Itching 2015-0 MD INS Class 4-24 Anderso 00:00: n 00 PENICILL Drug Active Itching 2016-0 MD INS Class 4-24 Anderso 00:00: n 00 Social History Social Habit Start Date Stop Date Quantity Comments Source History of Tobacco Use Co mmon [facility] Sex Assigned At Com mon [facility] Smoking Status Start Date Stop Date Source Never Smoker Common [facility] Medications Ordered Filled Start Stop Current Ordering Indication Dosage Frequency Signature Comments Components Source Medication Medication Date Date Medication? Clinician (SIG) Name Name Shan Machadoeli 2022-0 No 22.5mg Commo n 6-14 Spirit 00:00: - [facility] Jeannettekodymarta Machadoeli 2023-0 No 22.5mg Commo n 6-14 Spirit 00:00: - [facility] Myrbetriq Myrbetriq 2022-0 No 1{table QD Myrbetriq 25 MG 25 MG 3-15 t} 25 MG 00:00: 00 Eligard Jeannettegard 2022-0 No 22.5mg Commo n 3-15 Spirit 00:00: - [facility] Myrbetriq Myrbetriq 2022-0 No 1{table QD Myrbetriq 25 MG 25 MG 3-15 t} 25 MG 00:00: 00 Hardeepd Hardeepd 2022-0 No 22.5mg Commo n 3-15 Spirit 00:00: - [facility] Shan Meierd 2021-1 No 22.5mg Commo n 2-14 Spirit 00:00: - [facility] Shan Meierd 2021-1 No 22.5mg Commo n 2-14 Spirit 00:00: - [facility] Shan Meierd 2021-1 No 22.5mg Commo n 2-14 Spirit 00:00: - [facility] Bicalutamid Bicalutamid 2021-08 No 1{table QD Bicalutami e 50 MG e 50 MG 1-10 t} de 50 MG 00:00: 00 Bicalutamid Bicalutamid 2021-08 No 1{table QD Bicalutami e 50 MG e 50 MG 1-10 t} de 50 MG 00:00: 00 Bicalutamid Bicalutamid 2021-08 No 1{table QD Bicalutami e 50 MG e 50 MG 1-10 t} de 50 MG 00:00: 00 Bicalutamid Bicalutamid 2021-08 No 1{table QD Bicalutami e 50 MG e 50 MG 1-10 t} de 50 MG 00:00: 00 Albuterol Albuterol No 2{puffs Albuterol Sulfate HFA Sulfate HFA 7-24 } Sulfate 108 (90 108 (90 00:00: HFA 108 Base) Base) 00 (90 Base) MCG/ACT MCG/ACT MCG/ACT Albuterol Albuterol No 2{puffs Albuterol Sulfate HFA Sulfate HFA 7-24 } Sulfate 108 (90 108 (90 00:00: HFA 108 Base) Base) 00 (90 Base) MCG/ACT MCG/ACT MCG/ACT Albuterol Albuterol No 2{puffs Albuterol Sulfate HFA Sulfate HFA 7-24 } Sulfate 108 (90 108 (90 00:00: HFA 108 Base) Base) 00 (90 Base) MCG/ACT MCG/ACT MCG/ACT Albuterol Albuterol No 2{puffs Albuterol Sulfate HFA Sulfate HFA 7-24 } Sulfate 108 (90 108 (90 00:00: HFA 108 Base) Base) 00 (90 Base) MCG/ACT MCG/ACT MCG/ACT Albuterol Albuterol No 2{puffs Albuterol Sulfate HFA Sulfate HFA 7-24 } Sulfate 108 (90 108 (90 00:00: HFA 108 Base) Base) 00 (90 Base) MCG/ACT MCG/ACT MCG/ACT Norvasc Norvasc No Norvasc Norvasc Norvasc No Norvasc Norvasc Norvasc No Norvasc Flomax 0.4 Flomax 0.4 No 2{capsu QD Flomax 0.4 MG MG les} MG Norvasc Norvasc No Norvasc Flomax 0.4 Flomax 0.4 No 2{capsu QD Flomax 0.4 MG MG les} MG Norvasc Norvasc No Norvasc Vital Signs Vital Name Observation Time Observation Value Comments Source height 2022-07-31 08:30:00 [facility] weight 2022-07-31 08:30:00 224 [lb_av] [facility] temperature 2022-07-31 08:30:00 7.6 [degF] [facility] bmi 2022-07-31 08:30:00 30.8 kg/m2 [facility] oximetry 2022-07-31 08:30:00 98 % [facility] respiratory rate 2022-07-31 08:30:00 18 /min Comm on [facility] blood pressure 2022-07-31 08:30:00 131 mm[Hg] [facility] - systolic [facility] blood pressure 2022-07-31 08:30:00 61 mm[Hg] [facility] - diastolic [facility] height 2022-06-27 17:45:00 Common S pirit - [facility] weight 2022-06-27 17:45:00 224.4 [lb_av] [facility] temperature 2022-06-27 17:45:00 98.3 [degF] Common S pirit - [facility] bmi 2022-06-27 17:45:00 30.86 kg/m2 Common S pirit - [facility] oximetry 2022-06-27 17:45:00 97 % Common S pirit - [facility] respiratory rate 2022-06-27 17:45:00 16 /min Comm on [facility] blood pressure 2022-06-27 17:45:00 132 mm[Hg] [facility] - systolic [facility] blood pressure 2022-06-27 17:45:00 76 mm[Hg] [facility] - diastolic [facility] oximetry 2022-06-17 14:15:00 98 % Common S pirit - [facility] respiratory rate 2022-06-17 14:15:00 16 /min Comm on [facility] blood pressure 2022-06-17 14:15:00 134 mm[Hg] [facility] - systolic [facility] blood pressure 2022-06-17 14:15:00 71 mm[Hg] [facility] - diastolic [facility] height 2022-06-17 14:15:00 Common S pirit - [facility] weight 2022-06-17 14:15:00 223 [lb_av] Common S pirit - [facility] temperature 2022-06-17 14:15:00 97.6 [degF] Common S pirit - [facility] bmi 2022-06-17 14:15:00 30.67 kg/m2 Common S pirit - [facility] height 2021-11-06 09:30:00 [facility] weight 2021-11-06 09:30:00 220 [lb_av] [facility] temperature 2021-11-06 09:30:00 98.6 [degF] [facility] bmi 2021-11-06 09:30:00 30.25 kg/m2 [facility] oximetry 2021-11-06 09:30:00 99 % [facility] respiratory rate 2021-11-06 09:30:00 16 /min Comm on [facility] blood pressure 2021-11-06 09:30:00 12 mm[Hg] Common [facility] systolic [facility] blood pressure 2021-11-06 09:30:00 7 mm[Hg] [facility] diastolic [facility] Procedures This patient has no known procedures. Encounters Start End Encounter Admission Attending Care Care Encounter Source Date/Time Date/Time Type Type Clinicians Facility Department ID 2023-02-13 Outpatient SYSTEM, [facility] [id number] 15:21:22 PROVIDER Eduardo o n 2023-01-03 Outpatient SYSTEM, [facility] [id number] 08:23:46 PROVIDER Eduardo o n 2022-10-24 [id number] Common 08:06:02 [place] [id number] [facility] 2022-06-27 Outpatient DEBBIE Oro [facility] [id number] Common 19:01:00 [place] [id number] [facility] 2021-11-21 Outpatient SYSTEM, [facility] [id number] 14:05:45 PROVIDER Eduardo o n 2021-11-06 Outpatient DEBBIE Oro [facility] [id number] Common 09:24:04 [place] [facility] 2021-09-20 Outpatient [facility] [id number] 18:25:43 Anderso n 2021-08-29 Outpatient SYSTEM, [facility] [id number] 12:08:55 PROVIDER Eduardo o n 2020-04-18 Outpatient SYSTEM, [facility] [id number] 13:27:[address] 2022-07-31 2022-07-31 OFFICE STLMLC STLMLC [id number] Co mmon 00:00:00 00:00:00 VISIT EST Spir it PT LEVEL 3 - [facility] 2022-06-27 2022-06-27 OFFICE STLMLC STLMLC [id number] Co mmon 00:00:00 00:00:00 VISIT Spirit ESTAB PT - [facility] LEVEL 4 [facility] 2022-06-17 2022-06-17 OFFICE STLMLC STLMLC [id number] Co mmon 00:00:00 00:00:00 VISIT EST Spir it PT LEVEL 3 - [facility] 2022-04-24 2022-04-24 (TEL) STLMLC STLMLC [id number] Co mmon 00:00:00 00:00:00 Spirit - [facility] 2021-11-06 2021-11-06 OFFICE STLMLC STLMLC [id number] Co mmon 00:00:00 00:00:00 VISIT NEW Spir it PT LEVEL 2 - [facility] 2021-03-16 2021-03-16 Outpatient BENJMAIN SLAUGHTER [facility] MDA [id number] 00:00:00 00:00:[address] 2020-03-10 2020-03-10 Outpatient EL ALICIA, MDA MDA [id number] 12:13:44 12:13:[address] 2020-03-09 2020-03-09 Outpatient EL ALICIA, MDA MDA [id number] 00:00:00 00:00:[address] 2020-03-08 2020-03-08 Outpatient EL REZA, MINI MDA MDA [id number] 08:08:33 23:59:[address] 2020-03-08 2020-03-08 Outpatient EL REZA, MINI MDA MDA [id number] 08:38:46 08:38:[address] 2020-02-29 2020-02-29 Outpatient EL ALICIA, MDA MDA [id number] 00:00:00 00:00:[address] 2019-09-04 2019-09-04 Outpatient DARYN Rojas SURG [id number] [facility] 07:30:00 07:30:00 Salim [facility] Results Test Description Test Time Test Comments Results Result Comments Source BASIC METABOLIC PANEL 2019-09-04 06:28:00 Test Item Value Reference Range Interpretation Comme nts SODIUM (test code = NA) 141 MMOL/L 137-145 N POTASSIUM (test code = K) 3.5 MMOL/L 3.5-5.1 N CHLORIDE (test code = CL) 106 MMOL/L 98-107 N CARBON DIOXIDE (test code = CO2) 26 MMOL/L 22-30 N GLUCOSE (test code = GLU) 124 MG/DL 74-106 H BLOOD UREA NITROGEN (test code = 18 MG/DL 9-20 N BUN) GLOMERULAR FILTRATION RATE (test > 60 Reporting units: ml/min/1.73 code = GFR) m2 (Modified RD Formula)Referen ce Range: > or = 60 ml/min/1.7 3 m2 CREATININE (test code = CREAT) 1.10 MG/DL 0.66-1.25 N CALCIUM (test code = CA) 9.5 MG/DL 8.4-10.2 N Comments to Cheese Blender: NURSE WILL BRING SPECIMEN TO LABIs this a LINE draw? N LIPID PROFILE (CORONARY RISK)2019-09-04 06:28:00 Test Item Value Reference Range Interpretation Comments TRIGLYCERIDES (test 64 MG/DL TRIGLYCE RIDES code = TRIG) REFERENCE RANGE:Normal: < 150 mg/dLBorderline High: 150-199 mg/dLHi gh: 200-499 mg/dLVe ry High: >=500 mg/ dL CHOLESTEROL (test code 167 MG/DL <200 = CHOL) HDL CHOLESTEROL (test 56 MG/DL 40-59 N code = HDL) LIPOPROTEIN LDL (test 100 MG/DL 0-99 H OPTIM AL.........<100 code = LDL) mg/dLNEAR OPTIMAL/ABOVE OPTIMAL........ .100-12 9 mg/dL BORDERL INE HIGH.........13 0-159 mg/dL HIGH.........16 0-189 mg/dL VERY HIGH.........>/ = 190 mg/dL Comments to Cheese Blender: NURSE WILL BRING SPECIMEN TO LABIs this a LINE draw? N [id number] 06:28:00 Test Item Value Reference Range Interpretation Comments MAGNESIUM (test code = MAG) 2.2 MG/DL 1.6-2.3 N Comments to Cheese Blender: NURSE WILL BRING SPECIMEN TO LABIs this a LINE draw? N BASIC METABOLIC [id number] 06:17:00 Test Item Value Reference Range Interpretation Comments SODIUM (test code = 141 MMOL/L 137-145 N NA) POTASSIUM (test code = 3.5 MMOL/L 3.5-5.1 N K) CHLORIDE (test code = 106 MMOL/L 98-107 N CL) CARBON DIOXIDE (test 26 MMOL/L 22-30 N code = CO2) GLUCOSE (test code = 124 MG/DL 74-106 H GLU) BLOOD UREA NITROGEN 18 MG/DL 9-20 N (test code = BUN) GLOMERULAR FILTRATION > 60 Report ing units: RATE (test code = GFR) ml/mi n/1.73 m2 (Modified MDRD Formula)Referen ce Range: > or = 6 0 ml/min/1.73 m2 CREATININE (test code 1.10 MG/DL 0.66-1.25 N = CREAT) CALCIUM (test code = 9.5 MG/DL 8.4-10.2 N CA) Comments to Cheese Blender: NURSE WILL BRING SPECIMEN TO LABIs this a LINE draw? N LIPID PROFILE (CORONARY RISK)2019-09-04 06:17:00 Test Item Value Reference Range Interpretation Comments TRIGLYCERIDES (test 64 MG/DL TRIGLYCE RIDES code = TRIG) REFERENCE RANGE:Normal: < 150 mg/dLBorderline High: 150-199 mg/dLHi gh: 200-499 mg/dLVe ry High: >=500 mg/ dL CHOLESTEROL (test code 167 MG/DL <200 = CHOL) HDL CHOLESTEROL (test 56 MG/DL 40-59 N code = HDL) LIPOPROTEIN LDL (test MG/DL 0-99 code = LDL) Comments to Cheese Blender: NURSE WILL BRING SPECIMEN TO LABIs this a LINE draw? N [id number] 06:17:00 Test Item Value Reference Range Interpretation Comments MAGNESIUM (test code = MAG) 2.2 MG/DL 1.6-2.3 N Comments to Cheese Blender: NURSE WILL BRING SPECIMEN TO LABIs this a LINE draw? N BASIC METABOLIC [id number] 06:16:00 Test Item Value Reference Range Interpretation Comments SODIUM (test code = 141 MMOL/L 137-145 N NA) POTASSIUM (test code = 3.5 MMOL/L 3.5-5.1 N K) CHLORIDE (test code = 106 MMOL/L 98-107 N CL) CARBON DIOXIDE (test 26 MMOL/L 22-30 N code = CO2) GLUCOSE (test code = MG/DL 74-106 GLU) BLOOD UREA NITROGEN MG/DL 9-20 (test code = BUN) GLOMERULAR FILTRATION > 60 Report ing units: RATE (test code = GFR) ml/mi n/1.73 m2 (Modified MDRD Formula)Referen ce Range: > or = 6 0 ml/min/1.73 m2 CREATININE (test code 1.10 MG/DL 0.66-1.25 N = CREAT) CALCIUM (test code = MG/DL 8.7-9.7 CA) Comments to Cheese Blender: NURSE WILL BRING SPECIMEN TO LABIs this a LINE draw? N LIPID PROFILE (CORONARY RISK)2019-09-04 06:16:00 Test Item Value Reference Range Interpretation Comments TRIGLYCERIDES (test code = TRIG) MG/DL CHOLESTEROL (test code = CHOL) 167 MG/DL <200 HDL CHOLESTEROL (test code = HDL) MG/DL 40-59 LIPOPROTEIN LDL (test code = LDL) MG/DL 0-99 Comments to Cheese Blender: NURSE WILL BRING SPECIMEN TO LABIs this a LINE draw? N [id number] 06:16:00 Test Item Value Reference Range Interpretation Comments MAGNESIUM (test code = MAG) MG/DL 1.6-2.3 Comments to Cheese Blender: NURSE WILL BRING SPECIMEN TO LABIs this a LINE draw? N BASIC METABOLIC [id number] 06:14:00 Test Item Value Reference Range Interpretation Comments SODIUM (test code = NA) 141 MMOL/L 137-145 N POTASSIUM (test code = K) 3.5 MMOL/L 3.5-5.1 N CHLORIDE (test code = CL) 106 MMOL/L 98-107 N CARBON DIOXIDE (test code = CO2) MMOL/L 22-30 GLUCOSE (test code = GLU) MG/DL 74-106 BLOOD UREA NITROGEN (test code = MG/DL 9-20 BUN) GLOMERULAR FILTRATION RATE (test code = GFR) CREATININE (test code = CREAT) MG/DL 0.66-1.25 CALCIUM (test code = CA) MG/DL 8.7-9.7 Comments to Cheese Blender: NURSE WILL BRING SPECIMEN TO LABIs this a LINE draw? N LIPID PROFILE (CORONARY RISK)2019-09-04 06:14:00 Test Item Value Reference Range Interpretation Comments TRIGLYCERIDES (test code = TRIG) MG/DL CHOLESTEROL (test code = CHOL) MG/DL <200 HDL CHOLESTEROL (test code = HDL) MG/DL 40-59 LIPOPROTEIN LDL (test code = LDL) MG/DL 0-99 Comments to Cheese Blender: NURSE WILL BRING SPECIMEN TO LABIs this a LINE draw? N [id number] 06:14:00 Test Item Value Reference Range Interpretation Comments MAGNESIUM (test code = MAG) MG/DL 1.6-2.3 Comments to Cheese Blender: NURSE WILL BRING SPECIMEN TO LABIs this a LINE draw? N BASIC METABOLIC [id number] 06:13:00 Test Item Value Reference Range Interpretation Comments SODIUM (test code = NA) MMOL/L 137-145 POTASSIUM (test code = K) MMOL/L 3.5-5.1 CHLORIDE (test code = CL) 106 MMOL/L 98-107 N CARBON DIOXIDE (test code = CO2) MMOL/L 22-30 GLUCOSE (test code = GLU) MG/DL 74-106 BLOOD UREA NITROGEN (test code = MG/DL 9-20 BUN) GLOMERULAR FILTRATION RATE (test code = GFR) CREATININE (test code = CREAT) MG/DL 0.66-1.25 CALCIUM (test code = CA) MG/DL 8.7-9.7 Comments to Cheese Blender: NURSE WILL BRING SPECIMEN TO LABIs this a LINE draw? N LIPID PROFILE (CORONARY RISK)2019-09-04 06:13:00 Test Item Value Reference Range Interpretation Comments TRIGLYCERIDES (test code = TRIG) MG/DL CHOLESTEROL (test code = CHOL) MG/DL <200 HDL CHOLESTEROL (test code = HDL) MG/DL 40-59 LIPOPROTEIN LDL (test code = LDL) MG/DL 0-99 Comments to Cheese Blender: NURSE WILL BRING SPECIMEN TO LABIs this a LINE draw? N [id number] 06:13:00 Test Item Value Reference Range Interpretation Comments MAGNESIUM (test code = MAG) MG/DL 1.6-2.3 Comments to Cheese Blender: NURSE WILL BRING SPECIMEN TO LABIs this a LINE draw? N PROTHROMBIN [id number] 05:51:00 Test Item Value Reference Range Interpretation Comments PROTHROMBIN TIME 10.2 SECONDS 9.6-11.6 N PATIENT (test code = PTP) INTERNATIONAL NORMAL 1.0 0.8-1.1 N The INR is to be RATIO (test code = used only for INR) monitoring oral anticoagulantth erap y. INDICATION I NR VALUE ---- ---- ---- -------1. Prophylaxis, de ep venous thrombos is, including high risk surgery. 2.0 - 3.0 2. Prophylaxis, deep venous thrombosis, hip surgery, treatm ent for deep venous thrombosis or pulmonary prevention of systemic emboli sm in patients wit h valvular heart disease, atrial fibrillation, tissue heart va lve, or acute myocar dial infarction. 2. 0 - 3.0 3. Business Transformation Manager al prosthesis hear t valves, recurre nt systemic emboli sm. 3.0 - 4.5 Comments to Cheese Blender: NURSE WILL BRING SPECIMEN TO LABPTT ACTIVATED 2019-09-04 05:51:00 Test Item Value Reference Range Interpretation Comments PTT ACTIVATED (test code = APTT) 27.3 SECONDS 22.0-33.0 N Comments to Cheese Blender: NURSE WILL BRING SPECIMEN TO LABCBC W/AUTO DIFF 2019-09-04 05:31:00 Test Item Value Reference Range Interpretation Comments WHITE BLOOD CELL (test code = 7.1 K/MM3 3.8-9.8 N WBC) RED BLOOD CELL (test code = 4.62 M/MM3 3.95-5.67 N RBC) HEMOGLOBIN (test code = HGB) 13.6 G/DL 12.4-16.7 N HEMATOCRIT (test code = HCT) 42.1 % 35.9-49.5 N MEAN CELL VOLUME (test code = 91 fL 81.7-96.1 N MCV) MEAN CELL HGB (test code = MCH) 29.4 pg 27.6-33.2 N MEAN CELL HGB CONCETRATION 32.3 % 32.9-35.5 L (test code = MCHC) RED CELL DISTRIBUTION WIDTH 13.7 % 12.1-15.2 N (test code = RDW) PLATELET COUNT (test code = 248 K/MM3 129-368 N PLT) MEAN PLATELET VOLUME (test code 8.3 fl 7.4-10.4 N = MPV) NEUTROPHIL % (test code = NT%) 70.9 % 43-75 N IMMATURE GRANULOCYTE % (test 1.0 % 0.0-2.0 N code = IG%) LYMPHOCYTE % (test code = LY%) 12.7 % 14-44 L MONOCYTE % (test code = MO%) 11.7 % 4-13 N EOSINOPHIL % (test code = EO%) 2.7 % 0-6 N BASOPHIL % (test code = BA%) 1.0 % 0-2 N NUCLEATED RBC % (test code = 0.0 % 0-1.0 N NRBC%) NEUTROPHIL # (test code = NT#) 5.01 K/mm3 2.0-7.6 N IMMATURE GRANULOCYTE # (test 0.07 x10 3/uL 0-0.03 H code = IG#) LYMPHOCYTE # (test code = LY#) 0.90 K/mm3 1.0-3.8 L MONOCYTE # (test code = MO#) 0.83 K/mm3 0.1-0.8 H EOSINOPHIL # (test code = EO#) 0.19 K/mm3 0.0-0.2 N BASOPHIL # (test code = BA#) 0.07 K/mm3 0.0-0.2 N NUCLEATED RBC # (test code = 0.00 K/mm3 0.0-0.1 N NRBC#)
[2023-06-12] MEDS ORDERED: ONDANSETRON 4 MG/2 ML VIAL ONE ×2 (14:54→16:34)
[2023-06-12] MEDS ORDERED: NA CHLORIDE 0.9% 1,000 ML ONE ×2 (14:54→17:59)
[2023-06-12] MEDS ORDERED: HYDROMORPHONE HCL 1 MG/ML INJ ONE (14:54)
[2023-06-12 15:06] LABS: Absolute Lymphocytes (CBC) 1.7 K/uL (0.7-4.9); Hematocrit 33.5 % (39.6-49.0); Lymphocytes % 12.2 % (15.3-44.8); MCV 86.2 fL (80-100); MPV 6.3 fL (7.6-11.3); Platelets 339 thou/uL (152-406); RBC Red Blood Cell Count 3.89 M/uL (4.33-5.43)
[2023-06-12 15:14] LABS: Protime INR 1.05
[2023-06-12 15:26] LABS: Albumin 3.4 g/dL (3.4-5.0); Bilirubin Total 0.6 mg/dL (0.2-1.0); Potassium 2.9 mEq/L (3.5-5.1); Protein, Total 7.2 g/dL (6.4-8.2)
--- NOTE | 2023-06-12 16:55 | RAD REPORT ---
EXAM DESCRIPTION: CT - Abdomen Pelvis W Contrast - 06/12/2023 4:27 pm CLINICAL HISTORY: Abdominal pain COMPARISON: 2021 TECHNIQUE: Computed axial tomography of the abdomen pelvis was obtained. 100 cc [id number] was admin istered intravenously. Oral contrast was not requested which limits evaluation of bowel and appendix All CT scans are performed using dose optimization technique as appropriate and may include automated exposure control or mA/KV adjustment according to patient size. FINDINGS: Mild left lower lobe atelectasis Hepatic cyst The subcentimeter pancreatic tail tail cystic mass unchanged Spleen has a homogeneous density. Tiny amount of left upper quadrant ascites Adrenal glands unremarkable Small nonobstructing right renal calculi. . Left renal cortical thinning Left lower quadrant ostomy. Peristomal hernia contains small bowel. Small bowel is dilated within the hernia. The small bowel is narrowed as it enters and exits the hernia. Mild to moderate dilatation o f most of the remainder of the small bowel which is fluid-filled. Ill-defined fluid is present within small bowel mesentery. No free air. No abscess Left colectomy Chronic compression deformity T11 vertebral body IMPRESSION: Left lower quadrant ostomy. Peristomal hernia. Small bowel is obstructed as it traverses the hernia site.
[2023-06-12] MEDS ORDERED: NA CHLORIDE 0.9% 100 ML ONE (17:29)
[2023-06-12] MEDS ORDERED: CEFEPIME 1 GM/VIAL ONE (17:29)
--- NOTE | 2023-06-12 17:41 | ER ---
Nurse's Notes [facility] Name: Pernell Serrano Age: 87 yrs Sex: Male : 1935 Arrival Date: 06/12/2023 Time: 14:29 Bed 2 Private MD: Diagnosis: Periosteal hernia, small bowel obstruction Presentation: 06/12 14:34 Chief complaint: EMS states: sudden onset LLQ pain that started 3hrs ago. pt reports kc6 nausea, denies vomiting. 4mg of IV zofran given en route. Coronavirus screen: At this time, the client does not indicate any symptoms associated with coronavirus-19. Ebola Screen: No symptoms or risks identified at this time. Initial Sepsis Screen: Does the patient meet any 2 criteria? No. Patient's initial sepsis screen is negative. Does the patient have a suspected source of infection? No. Patient's initial sepsis screen is negative. Risk Assessment: Do you want to hurt yourself or someone else? Patient reports no desire to harm self or others. Onset of symptoms was June 12, 2023. 14:34 Method Of Arrival: EMS: [facility] kc6 14:34 Acuity: ROIBN 3 kc6 Triage Assessment: 14:35 General: Appears in no apparent distress. comfortable, Behavior is calm, cooperative, kc6 appropriate for age. Pain: Complains of pain in left lower quadrant Pain does not radiate. Pain currently is 9 out of 10 on a pain scale. EENT: No signs and/or symptoms were reported regarding the EENT system. Neuro: Level of Consciousness is awake, alert, obeys commands, Oriented to person, place, time, situation, Appropriate for age. Cardiovascular: Capillary refill < 3 seconds. Respiratory: Airway is patent Trachea midline Respiratory effort is even, unlabored, Respiratory pattern is regular, symmetrical. GI: Colostomy site is clean and dry. Ostomy appliance is intact. Bowel sounds present X 4 quads. Abd is soft X 4 quads Abdomen is tender to palpation in left lower quadrant Reports nausea, Patient currently denies vomiting. : No signs and/or symptoms were reported regarding the genitourinary system. Derm: No signs and/or symptoms reported regarding the dermatologic system. Skin is intact, is healthy with good turgor, Skin is dry, Skin is pale, Skin temperature is warm. Musculoskeletal: No signs and/or symptoms reported regarding the musculoskeletal system. Circulation, motion, and sensation intact. Capillary refill < 3 seconds, Range of motion: intact in all extremities. Historical: - Allergies: 14:35 PENICILLINS; kc6 - PMHx: 14:35 colon cancer; Hypertension; prostate cancer (Hypertension); kc6 - PSHx: 14:35 Colostomy; kc6 - Immunization history:: Client reports having NOT received the Covid vaccine. Flu vaccine is not up to date. - Social history:: Smoking status: Patient denies any tobacco usage or history of. Screenin:37 [facility] ED Fall Risk Assessment (Adult) History of falling in the last 3 months, kc6 including since admission No falls in past 3 months (0 pts) Confusion or Disorientation No (0 pts) Intoxicated or Sedated No (0 pts) Impaired Gait No (0 pts) Mobility Assist Device Used No (0 pt) Altered Elimination No (0 pt) Score/Fall Risk Level 0 - 2 = Low Risk. Abuse screen: Denies threats or abuse. Denies injuries from another. Nutritional screening: No deficits noted. Tuberculosis screening: No symptoms or risk factors identified. Assessment: 14:38 Reassessment: please see triage assessment. kc 15:38 Reassessment: Patient appears in no apparent distress at this time. No changes from kc6 previously documented assessment. Patient and/or family updated on plan of care and expected duration. Pain level reassessed. Patient is alert, oriented x 3, equal unlabored respirations, skin warm/dry/pink. 16:38 Reassessment: Patient appears in no apparent distress at this time. No changes from kc6 previously documented assessment. Patient and/or family updated on plan of care and expected duration. Pain level reassessed. Patient is alert, oriented x 3, equal unlabored respirations, skin warm/dry/pink. 17:38 Reassessment: Patient appears in no apparent distress at this time. No changes from kc6 previously documented assessment. Patient and/or family updated on plan of care and expected duration. Pain level reassessed. Patient is alert, oriented x 3, equal unlabored respirations, skin warm/dry/pink. 18:38 Reassessment: Patient appears in no apparent distress at this time. No changes from kc6 previously documented assessment. Patient and/or family updated on plan of care and expected duration. Pain level reassessed. Patient is alert, oriented x 3, equal unlabored respirations, skin warm/dry/pink. 12F NGT inserted to the right nare by Faith Ambrosio. xray pending. 19:21 General: Appears in no apparent distress. Behavior is calm, cooperative. km8 19:21 Pain: Complains of pain in left lower quadrant Pain currently is 10 out of 10 on a pain km8 scale. Neuro: Loera Agitation-Sedation Scale (RASS): 0 - Alert and Calm Level of Consciousness is awake, alert, obeys commands, Oriented to person, place, time, situation. Cardiovascular: Denies chest pain, shortness of breath, Capillary refill < 3 seconds Patient's skin is warm and dry. Respiratory: No deficits noted. Airway is patent Respiratory effort is even, unlabored, Respiratory pattern is regular, symmetrical. GI: Colostomy site is clean and dry. Ostomy appliance is intact. NG tube to right nare Reports lower abdominal pain, Pain is 10 out of 10 on a pain scale. : No signs and/or symptoms were reported regarding the genitourinary system. EENT: Nares on right NG tube. Derm: Skin is intact, is healthy with good turgor, Skin is dry, Skin is normal, Skin temperature is warm. Musculoskeletal: No signs and/or symptoms reported regarding the musculoskeletal system. Range of motion: intact in all extremities. 20:34 Reassessment: Patient appears in no apparent distress at this time. Patient and/or km8 family updated on plan of care and expected duration. Pain level reassessed. Patient is alert, oriented x 3, equal unlabored respirations, skin warm/dry/pink. Patient states symptoms have improved. pain leve decreased. 22:30 Reassessment: Patient appears in no apparent distress at this time. No changes from km8 previously documented assessment. Patient and/or family updated on plan of care and expected duration. Pain level reassessed. Patient is alert, oriented x 3, equal unlabored respirations, skin warm/dry/pink. Vital Signs: 14:34 BP 126 / 57; Pulse 76; Resp 19; Temp 98.3(O); Pulse Ox 100% on R/A; Weight 102.97 kg kc6 (M); Height 6 ft. 1 in. (R); Pain 9/10; 16:49 BP 116 / 66; Pulse 71; Resp 18 S; Pulse Ox 96% on R/A; kc6 19:21 BP 120 / 63; Pulse 82; Resp 20; Pulse Ox 98% on R/A; km8 20:00 BP 119 / 64; Pulse 81; Resp 18; Pulse Ox 95% on R/A; km8 20:30 BP 123 / 60; Pulse 83; Resp 18; Pulse Ox 96% on R/A; km8 21:30 BP 123 / 67; Pulse 82; Resp 18 S; Pulse Ox 95% on R/A; km8 22:32 BP 120 / 69; Pulse 83; Resp 18 S; Pulse Ox 96% on R/A; km8 14:34 Body Mass Index 29.95 (102.97 kg, 185.42 cm) kc6 14:34 Pain Scale: Adult kc6 ED Course: 14:34 Patient arrived in ED. kc6 14:34 Jhonny Austin MD is Attending Physician. sp3 14:35 Triage completed. kc6 14:35 Arm band placed on. kc6 14:37 Maintain EMS IV. Dressing intact. Good blood return noted. Site clean \T\ dry. Gauge \T\ kunal 6 site: 20G LW. Patient maintains SpO2 saturation greater than 95% on room air. 14:38 Patient has correct armband on for positive identification. Bed in low position. Call kc6 light in reach. Side rails up X2. Adult w/ patient. Client placed on continuous cardiac and pulse oximetry monitoring. NIBP monitoring applied. 14:59 Toya Horne, RN is Primary Nurse. kc 15:03 Inserted saline lock: 20 gauge in right antecubital area, using aseptic technique. kc6 Blood collected. 16:28 CT Abd/Pelvis - IV Contrast Only In Process Unspecified. EDMS 17:19 initiated transfer to [facility]. bd 18:38 NGT: inserted 12 Fr. via right nare. verified placement of air over stomach, verified kc6 return of gastric contents, Placement verified by X-ray, Patient tolerated well. 18:50 pt accepted in transfer to [facility] by dr mccray, admin approval given by yu guevara, pt going to [id number]. 18:58 Abdomen 1 View XRAY: Perform after NG Tube In Process Unspecified. EDMS 19:00 Report given to SPENCER Carrillo. kc6 19:13 Primary Nurse role handed off by Toya Horne RN km8 19:13 Lorena White RN is Primary Nurse. km8 20:24 Report given to SPENCER Torres from [facility]. km8 22:31 No provider procedures requiring assistance completed. Patient transferred, IV remains km8 in place. 22:32 Provided Education on: transfer process. km8 Administered Medications: 14:59 Drug: NS 0.9% IV 1000 ml IV at 1 bolus Per protocol; 1000 mL bolus Route: IV; Rate: 1 kc6 bolus; Site: right antecubital; 16:50 Follow up: Response: No adverse reaction; IV Status: Completed infusion; IV Intake: kc6 1000ml 14:59 Drug: Ondansetron IVP 4 mg IVP once; over 2 minutes Route: IVP; Site: right antecubital;kc6 16:49 Follow up: Response: No adverse reaction; Nausea unchanged kc6 14:59 Drug: HYDROmorphone IVP 1 mg IVP once Route: IVP; Site: right antecubital; kc6 16:50 Follow up: Response: No adverse reaction; Pain is decreased; RASS: Alert and Calm (0) kc6 16:22 Drug: Ondansetron IVP 4 mg IVP once; over 2 minutes Route: IVP; Site: left wrist; nc1 16:50 Follow up: Response: No adverse reaction; Nausea is decreased kc6 17:27 Drug: Cefepime IVPB 1 grams IVPB at 200 ml/hr once over 30 mins; (mix in NS 100 mL) kc6 Route: IVPB; Rate: 200 ml/hr; Infused Over: 30 mins; Site: right antecubital; 19:11 Follow up: Response: No adverse reaction; IV Status: Completed infusion; IV Intake: kc6 100ml 18:04 Drug: NS 0.9% IV 1000 ml IV at 1 bolus Per protocol; 1000 mL bolus Route: IV; Rate: 1 kc6 bolus; Site: right antecubital; 20:36 Follow up: Response: No adverse reaction; No change in condition; IV Status: Completed km8 infusion; IV Intake: 1000ml 19:20 Drug: HYDROmorphone IVP 1 mg IVP once Route: IVP; Site: left hand; km8 20:00 Follow up: Response: No adverse reaction; Pain is decreased; RASS: Alert and Calm (0) km8 Medication: 22:32 VIS not applicable for this client. km8 Intake: 16:50 IV: 1000ml; Total: 1000ml. kc6 19:11 IV: 100ml; Total: 1100ml. kc6 20:36 IV: 1000ml; Total: 2100ml. km8 Outcome: 17:40 ER care complete, transfer ordered by . sp3 22:32 Transferred by ground EMS to [facility], [facility], Transfer form completed. km8 22:32 Condition: good 22:32 Discharge instructions given to patient, family, significant other, Instructed on the need for transfer, Demonstrated understanding of instructions, 22:41 Patient left the ED. km8 Signatures: Dispatcher [employer] EDHeather Mancini Setul, MD MD sp3 Toya Horne RN RN kc6 Debbi Barnard, SPENCER RN nc1 Lorena White, SPENCER RN km8
--- NOTE | 2023-06-12 17:41 | EDPHYS ---
Physician Documentation [facility] Name: Pernell Serrano Age: 87 yrs Sex: Male : 1935 Arrival Date: 06/12/2023 Time: 14:29 Bed 2 Private MD: ED Physician Jhonny Austin HPI: 06/12 14:53 This 87 yrs old Male presents to ER via EMS with complaints of Abdominal Pain. sp3 14:53 87-year-old male with history of prior colon cancer status post colectomy with sp3 diverting ileostomy, prostate cancer currently being treated here at this facility and hypertension now presents with approximately 4 hours of sudden onset abdominal pain around the area of his colostomy on the left side of his abdomen. Patient has a ventral hernia in that region as well. He denies any emesis however is nauseated. Pain is described as sharp in nature without radiation. Patient denies fever, URI symptoms, headache, neck pain, chest pain, shortness of breath, back pain, syncope, near syncope, focal neurological deficit, rash, bleeding, or any other signs or symptoms on ROS at this time.. Historical: - Allergies: 14:35 PENICILLINS; kc6 - PMHx: 14:35 colon cancer; Hypertension; prostate cancer (Hypertension); kc6 - PSHx: 14:35 Colostomy; kc6 - Immunization history:: Client reports having NOT received the Covid vaccine. Flu vaccine is not up to date. - Social history:: Smoking status: Patient denies any tobacco usage or history of. ROS: 14:55 Constitutional: Negative for fever, chills, and weight loss, Eyes: Negative for injury, sp3 pain, redness, and discharge, ENT: Negative for injury, pain, and discharge, Neck: Negative for injury, pain, and swelling, Cardiovascular: Negative for chest pain, palpitations, and edema, Respiratory: Negative for shortness of breath, cough, wheezing, and pleuritic chest pain, Back: Negative for injury and pain, MS/Extremity: Negative for injury and deformity, Skin: Negative for injury, rash, and discoloration, Neuro: Negative for headache, weakness, numbness, tingling, and seizure, Psych: Negative for depression, anxiety, suicide ideation, homicidal ideation, and hallucinations, Allergy/Immunology: Negative for hives, rash, and allergies, Endocrine: Negative for neck swelling, polydipsia, polyuria, polyphagia, and marked weight changes, Hematologic/Lymphatic: Negative for swollen nodes, abnormal bleeding, and unusual bruising, 14:55 All other systems are negative, Exam: 14:55 Constitutional: This is a well developed, well nourished patient who is awake, alert, sp3 and in no acute distress. Head/Face: Normocephalic, atraumatic. Eyes: Pupils equal round and reactive to light, extra-ocular motions intact. Lids and lashes normal. Conjunctiva and sclera are non-icteric and not injected. Cornea within normal limits. Periorbital areas with no swelling, redness, or edema. ENT: Nares patent. No nasal discharge, no septal abnormalities noted. External auditory canals are clear. Oropharynx with no redness, swelling, or masses, exudates, or evidence of obstruction, uvula midline. Mucous membranes moist. Neck: Trachea midline, no thyromegaly or masses palpated, and no cervical lymphadenopathy. Supple, full range of motion without nuchal rigidity, or vertebral point tenderness. No Meningismus. Chest/axilla: Normal chest wall appearance and motion. Nontender with no deformity. No lesions are appreciated. Cardiovascular: Regular rate and rhythm with a normal S1 and S2. No gallops, murmurs, or rubs. Normal PMI, no JVD. No pulse deficits. Respiratory: Lungs have equal breath sounds bilaterally, clear to auscultation and percussion. No rales, rhonchi or wheezes noted. No increased work of breathing, no retractions or nasal flaring. Back: No spinal tenderness. No costovertebral tenderness. Full range of motion. Skin: Warm, dry with normal turgor. Normal color with no rashes, no lesions, and no evidence of cellulitis. MS/ Extremity: Pulses equal, no cyanosis. Neurovascular intact. Full, normal range of motion. Neuro: Awake and alert, GCS 15, oriented to person, place, time, and situation. Cranial nerves II-XII grossly intact. Motor strength 5/5 in all extremities. Sensory grossly intact. Cerebellar exam normal. Normal gait. Psych: Awake, alert, with orientation to person, place and time. Behavior, mood, and affect are within normal limits. 14:55 Abdomen/GI: Patient has notable bulging in the left side of his abdomen due to the ventral hernia with ostomy present with good color and mild output noted. No peritoneal signs noted., Vital Signs: 14:34 BP 126 / 57; Pulse 76; Resp 19; Temp 98.3(O); Pulse Ox 100% on R/A; Weight 102.97 kg kc6 (M); Height 6 ft. 1 in. (R); Pain 9/10; 16:49 BP 116 / 66; Pulse 71; Resp 18 S; Pulse Ox 96% on R/A; kc6 19:21 BP 120 / 63; Pulse 82; Resp 20; Pulse Ox 98% on R/A; km8 20:00 BP 119 / 64; Pulse 81; Resp 18; Pulse Ox 95% on R/A; km8 20:30 BP 123 / 60; Pulse 83; Resp 18; Pulse Ox 96% on R/A; km8 21:30 BP 123 / 67; Pulse 82; Resp 18 S; Pulse Ox 95% on R/A; km8 22:32 BP 120 / 69; Pulse 83; Resp 18 S; Pulse Ox 96% on R/A; km8 14:34 Body Mass Index 29.95 (102.97 kg, 185.42 cm) 6 14:34 Pain Scale: Adult kc MDM: 14:34 Patient medically screened. sp3 14:56 Data reviewed: vital signs, nurses notes, old medical records, lab test result(s), sp3 radiologic studies. ED course: 87-year-old male with extensive surgical history, diverting ileostomy with total colectomy now presents with sudden onset of sharp abdominal pain. Consider obstruction, ileus, enteritis, sepsis, among others. I am not highly suspicious for ischemic bowel or peritonitis. Work-up will include CT scan of the abdomen pelvis, laboratory values and symptomatic control of pain and nausea. Disposition pending work-up with probable admission depending on pathology.. 17:38 ED course: Patient has a periosteal hernia causing small bowel obstruction. Patient sp3 also has leukocytosis with lactate elevated at 4.8. Patient has received now 2 L of normal saline and cefepime IV 1 dose of [address] Cuevas our general surgeon on-call is at bedside who has recommended transfer secondary to patient likely requiring biological mesh. I discussed case with [facility] surgery team who accepted the patient on consult with the request to admit to the hospitalist for which we are still awaiting the call. I discussed all this with patient and we will transfer him at this time.. 06/12 14:36 Order name: CBC with Diff; Complete Time: 16:29 sp3 06/12 14:36 Order name: CMP; Complete Time: 16:29 sp3 06/12 14:36 Order name: Lipase; Complete Time: 16:29 sp3 06/12 14:36 Order name: Lactate w/ 2H reflex if indic.; Complete Time: 16:29 sp3 06/12 14:36 Order name: PT-INR; Complete Time: 16:29 sp3 06/12 18:24 Order name: Lactate Sepsis 2 HR Follow-up; Complete Time: 19:08 EDMS 06/12 14:36 Order name: CT Abd/Pelvis - IV Contrast Only; Complete Time: 16:56 sp3 06/12 17:41 Order name: Abdomen 1 View XRAY: Perform after NG Tube sp3 06/12 14:36 Order name: IV Saline Lock; Complete Time: 14:38 sp3 06/12 14:36 Order name: Labs collected and sent; Complete Time: 14:59 sp3 06/12 14:36 Order name: NPO; Complete Time: 14:38 sp3 06/12 17:40 Order name: NG Tube; Complete Time: 19:15 sp3 Administered Medications: 14:59 Drug: NS 0.9% IV 1000 ml IV at 1 bolus Per protocol; 1000 mL bolus Route: IV; Rate: 1 kc6 bolus; Site: right antecubital; 16:50 Follow up: Response: No adverse reaction; IV Status: Completed infusion; IV Intake: kc6 1000ml 14:59 Drug: Ondansetron IVP 4 mg IVP once; over 2 minutes Route: IVP; Site: right antecubital;kc6 16:49 Follow up: Response: No adverse reaction; Nausea unchanged kc6 14:59 Drug: HYDROmorphone IVP 1 mg IVP once Route: IVP; Site: right antecubital; kc6 16:50 Follow up: Response: No adverse reaction; Pain is decreased; RASS: Alert and Calm (0) kc6 16:22 Drug: Ondansetron IVP 4 mg IVP once; over 2 minutes Route: IVP; Site: left wrist; me1 16:50 Follow up: Response: No adverse reaction; Nausea is decreased kc6 17:27 Drug: Cefepime IVPB 1 grams IVPB at 200 ml/hr once over 30 mins; (mix in NS 100 mL) kc6 Route: IVPB; Rate: 200 ml/hr; Infused Over: 30 mins; Site: right antecubital; 19:11 Follow up: Response: No adverse reaction; IV Status: Completed infusion; IV Intake: kc6 100ml 18:04 Drug: NS 0.9% IV 1000 ml IV at 1 bolus Per protocol; 1000 mL bolus Route: IV; Rate: 1 kc6 bolus; Site: right antecubital; 20:36 Follow up: Response: No adverse reaction; No change in condition; IV Status: Completed km8 infusion; IV Intake: 1000ml 19:20 Drug: HYDROmorphone IVP 1 mg IVP once Route: IVP; Site: left hand; km8 20:00 Follow up: Response: No adverse reaction; Pain is decreased; RASS: Alert and Calm (0) km8 Disposition Summary: 06/12/23 17:40 Transfer Ordered Notes: Transfer Location: [facility] sp3 Reason: Higher level of care sp3 Condition: Stable sp3 Problem: an acute exacerbation sp3 Symptoms: have worsened sp3 Accepting Physician: [facility] hospitalist and surgical consult(06/12/23 22:41) km8 Diagnosis - Periosteal hernia, small bowel obstruction sp3 Forms: - Medication Reconciliation Form sp3 - SBAR form sp3 Signatures: Dispatcher [employer] EDMilan Dinero MD MD cha Patel, Setul, MD MD sp3 Toya Horne RN RN kc6 Debbi Barnard RN RN tn1 Lorena White RN RN km8 Corrections: (The following items were deleted from the chart) 22:41 17:40 [facility] hospitalist and surgical consult sp3 km8
--- NOTE | 2023-06-12 19:09 | RAD REPORT ---
EXAM DESCRIPTION: RAD - Abdomen Single View - 06/12/2023 6:56 pm CLINICAL HISTORY: Device placement nasogastric tube placement FINDINGS: The tip of a Dobhoff tube lies within the distal gastric fundus
[2023-06-12] MEDS ORDERED: HYDROMORPHONE HCL 2 MG/ML inj ONE (19:29)
[2023-06-12 22:56] VITALS: TEMP 98.3
[2023-06-12 23:06] VITALS: BP 120/69; O2SAT 96
== END 2023-06-12 22:41 | disposition short-term general hospital (02) ==
LOC: ER 14:29
DX: K56.609 Unspecified intestinal obstruction, unspecified as to partial versus complete obstruction (principal); K45.8 Other specified abdominal hernia without obstruction or gangrene; C61 Malignant neoplasm of prostate; I10 Essential (primary) hypertension; Z85.038 Personal history of other malignant neoplasm of large intestine; Z93.3 Colostomy status; Z88.0 Allergy status to penicillin
CPT/HCPCS: 85025; 36415; 85610; 83605 ×2; 83690; 80053; 74177; 74018; 99285; Q9967; J1170 ×2; J2405 ×2; J7030 ×2; J0692

== ENCOUNTER 2024-03-20 07:45 | Inpatient (IN) | payer OTHER ==
[2024-03-20 08:25] LABS: Absolute Basophils 0.1 K/uL (0-0.5); Absolute Eosinophils 0.1 K/uL (0-0.5); Absolute Lymphocytes (CBC) 0.8 K/uL (0.7-4.9); Absolute Monocytes 1.4 K/uL (0.1-1.3); Basophils % 0.8 % (0-1.3); Hematocrit 32.4 % (39.6-49.0); Hemoglobin 10.5 g/dL (13.6-17.9); Lymphocytes % 13.2 % (15.3-44.8); MCH 28.4 pg (27.0-35.0); MCHC 32.4 g/dL (32.0-36.0); MCV 87.6 fL (80-100); MPV 6.2 fL (7.6-11.3); Monocytes % 22.1 % (3.3-12.3); Neutrophils % 62.9 % (41.7-73.7); Nucleated Red Blood Cells % 0.1 % (0-0); Platelets 254 thou/uL (152-406); RBC Red Blood Cell Count 3.71 M/uL (4.33-5.43); Red Cell Distribution Width 15.6 % (12.1-15.2)
--- NOTE | 2024-03-20 08:31 | RAD REPORT ---
EXAM DESCRIPTION: CT - Head Brain Wo Cont - 03/20/2024 8:23 am CLINICAL HISTORY: ams Headache, drowsiness COMPARISON: No comparisons TECHNIQUE: All CT scans are performed using dose optimization technique as appropriate and may inclu de automated exposure control or mA/KV adjustment according to patient size. FINDINGS: No intracranial hemorrhage, hydrocephalus or extra-axial fluid collection.No areas of brai n edema or evidence of midline shift. The paranasal sinuses and mastoids are clear. The calvarium is intact. IMPRESSION: No acute intracranial abnormality.
[2024-03-20 08:48] LABS: Albumin 3.4 g/dL (3.4-5.0); Albumin/Globulin Ratio 0.9 (1.1-1.8); Anion Gap 9.8 mEq/L (5.0-15.0); Bilirubin Direct 0.2 mg/dL (0-0.2); Bilirubin Indirect, Calculated 0.3 mg/dL (0.2-0.8); Bilirubin Total 0.5 mg/dL (0.2-1.0); Globulin 3.6 g/dL (2.3-3.5); Magnesium 2.2 mg/dL (1.6-2.4); Potassium 3.8 mEq/L (3.5-5.1); Troponin High Sensitivity 21.3 pg/mL (<58.9)
--- NOTE | 2024-03-20 09:19 | RAD REPORT ---
EXAM DESCRIPTION: RAD - Chest Single View - 03/20/2024 9:08 am CLINICAL HISTORY: COUGH Chest pain. COMPARISON: <Comparisons> FINDINGS: Portable technique limits examination quality. The lungs are grossly clear. The heart is normal in size. No displaced fractures. IMPRESSION: No acute intrathoracic process suspected.
[2024-03-20 09:40] LABS: Blood Morphology Comment NOT SEEN (NOT SEEN); Differential Total Cells Count 100; Eosinophils 2 % (0-3); Lymphocytes 12 % (15-42); Metamyelocytes 1 % (0-0); Monocytes 35 % (0-10); Platelet Estimate ADEQ; Segmented Neutrophils 60 % (40-80)
[2024-03-20] MEDS ORDERED: ASPIRIN 325 MG TAB ONE (10:02)
--- NOTE | 2024-03-20 10:48 | EDPHYS ---
Physician Documentation [facility] Name: Pernell Serrano Age: 88 yrs Sex: Male : 1935 Arrival Date: 03/20/2024 Time: 07:45 Bed 7 Private MD: ED Physician Papito Chaudhry HPI: 03/20 08:08 This 88 yrs old Male presents to ER via Wheelchair with complaints of Flu Symptoms, rt Confusion. 08:08 Patient presents to the ED with 2 days of cough, reported breathlessness. states rt that the patient is confused, states that he has not been speaking normally, is been slower to respond and not finishing sentences starting yesterday. States that his responses have been inappropriate to the situation. He denies any pain. Denies other acute complaints at this time, symptoms are moderate in severity, no other aggravating or alleviating factors.. Historical: - Allergies: 07:57 PENICILLINS; aa5 - Home Meds: 08:12 amlodipine 5 mg oral tablet [Active]; losartan 100 mg Oral tab 1 tab once daily db [Active]; atorvastatin 10 mg oral tablet daily [Active]; triamterene-hydrochlorothiazid 37.5-25 mg Oral tablet once [Active]; tamsulosin 0.4 mg oral capsule once [Active]; solifenacin 5 mg oral tablet [Active]; - PMHx: 07:57 colon cancer; Hypertension; Prostate Cancer (Hypertension); "LEG SWELLING" (Unknown); aa5 - PSHx: 07:57 Colostomy; aa5 - Immunization history:: Adult Immunizations unknown. - Infectious Disease History:: Denies. - Family history:: not pertinent. - Social history:: Smoking status: Patient denies any tobacco usage or history of. ROS: 08:08 Constitutional: Negative for fever, chills, and weight loss, Cardiovascular: Negative rt for chest pain, palpitations, and edema, Abdomen/GI: Negative for abdominal pain, nausea, vomiting, diarrhea, and constipation, 08:08 Respiratory: Positive for cough, shortness of breath, 08:08 Neuro: Positive for altered mental status, speech changes, Exam: 08:08 Constitutional: This is a well developed, well nourished patient who is awake, alert, rt and in no acute distress. Head/Face: Normocephalic, atraumatic. Chest/axilla: Normal chest wall appearance and motion. Nontender with no deformity. No lesions are appreciated. Cardiovascular: Regular rate and rhythm with a normal S1 and S2. No gallops, murmurs, or rubs. Normal PMI, no JVD. No pulse deficits. Respiratory: Lungs have equal breath sounds bilaterally, clear to auscultation and percussion. No rales, rhonchi or wheezes noted. No increased work of breathing, no retractions or nasal flaring. Abdomen/GI: Soft, non-tender, with normal bowel sounds. No distension or tympany. No guarding or rebound. No evidence of tenderness throughout. Skin: Warm, dry with normal turgor. Normal color with no rashes, no lesions, and no evidence of cellulitis. Neuro: Awake and alert, GCS 15, oriented to person, place, time, and situation. Cranial nerves II-XII grossly intact. Motor strength 5/5 in all extremities. Sensory grossly intact. Cerebellar exam normal. Normal gait. 08:08 ECG was reviewed by the Attending Physician. 08:08 Musculoskeletal/extremity: 2+ nonpitting bilateral lower extremity edema, symmetric. Vital Signs: 07:50 BP 166 / 85; Pulse 68; Resp 20 S; Temp 98.7(O); Pulse Ox 96% on R/A; aa5 09:00 BP 145 / 79; Pulse 65; Resp 16; Pulse Ox 95% ; db 10:03 BP 149 / 89; Pulse 63; Resp 19 S; Pulse Ox 95% on R/A; kc6 11:00 BP 149 / 81; Pulse 79; Resp 16; Pulse Ox 96% on R/A; db 12:00 BP 138 / 73; Pulse 58; Resp 16; Pulse Ox 95% ; db MDM: 07:51 Patient medically screened. rt 10:48 Differential Diagnosis TIA, CVA, cough, CHF. Data reviewed: vital signs, nurses notes, rt lab test result(s), EKG, radiologic studies. Consideration of Admission/Observation Patient was admitted/placed on observation. Management of patient was discussed with the following: Primary Care Provider: Agrees to admit. I considered the following discharge prescriptions or medication management in the emergency department Medications were administered in the Emergency Department. See MAR. Independent interpretation of the following test(s) in the Emergency Department CT Scan: My interpretation is No intracranial hemorrhage seen on interpretation of CT scan images. Care significantly affected by the following chronic conditions: Hypertension. Counseling: I had a detailed discussion with the patient and/or guardian regarding the historical points, exam findings, and any diagnostic results supporting the discharge/admit diagnosis, lab results, radiology results, the need for further work-up and treatment in the hospital. Response to treatment: the patient's symptoms have markedly improved after treatment. 14:31 ED course: Timing of onset is greater than 4.5 hours, not a thrombolytic candidate. rt 03/20 08:03 Order name: Basic Metabolic Panel; Complete Time: 08:50 rt 03/20 08:03 Order name: CBC with Diff; Complete Time: 09:41 rt 03/20 08:03 Order name: LFT's; Complete Time: 08:50 rt 03/20 08:03 Order name: Magnesium; Complete Time: 08:50 rt 03/20 08:03 Order name: NT PRO-BNP; Complete Time: 08:50 rt 03/20 08:03 Order name: Troponin HS; Complete Time: 08:50 rt 03/20 08:03 Order name: CPK; Complete Time: 08:50 rt 03/20 09:41 Order name: Manual Differential; Complete Time: 09:41 EDMS 03/20 11:44 Order name: ETOH Level rt 03/20 12:19 Order name: Alcohol Serum/Plasma EDMS 03/20 08:03 Order name: XRAY Chest (1 view); Complete Time: 09:22 rt 03/20 08:03 Order name: CT Head Brain wo Cont; Complete Time: 08:39 rt 03/20 08:03 Order name: Cardiac monitoring; Complete Time: 08:10 rt 03/20 08:03 Order name: EKG - Nurse/Tech; Complete Time: 08:10 rt 03/20 08:03 Order name: IV Saline Lock; Complete Time: 08:18 rt 03/20 08:03 Order name: Labs collected and sent; Complete Time: 08:18 rt 03/20 08:03 Order name: O2 Per Protocol; Complete Time: 08:10 rt 03/20 08:03 Order name: O2 Sat Monitoring; Complete Time: 08:10 rt EC:08 Rate is 64 beats/min. Rhythm is regular, Normal Sinus Rhythm with No ectopy, rt Bifascicular block. Left axis deviation noted. NC interval is prolonged at 214 msec. QRS interval is normal. QT interval is normal. No ST changes noted. Administered Medications: 10:05 Drug: Aspirin PO 325 mg PO once Route: PO; db 12:34 Follow up: Response: No adverse reaction db Disposition Summary: 03/20/24 10:48 Hospitalization Ordered Notes: Hospitalization Status: Observation rt Provider: Aurelio Herrmann rt Location: Telemetry/MedSurg (observation) rt Condition: Stable rt Problem: new rt Symptoms: have improved rt Bed/Room Type: Standard rt Room Assignment: 221(03/20/24 11:47) eb Diagnosis - Transient ischemic attack rt - Cough rt Forms: - Medication Reconciliation Form rt - SBAR form rt - Leadership Thank You Letter rt Signatures: Dispatcher [employer] Genie Clarke, RN RN aa5 Laurie Mcnally Danielle, RN RN db Papito Chaudhry MD MD rt Corrections: (The following items were deleted from the chart) 08:04 08:03 BASIC METABOLIC PANEL+C.LAB.BRZ ordered. EDMS EDMS 08:04 08:03 CBC+H.LAB.BRZ ordered. EDMS EDMS 08:04 08:03 HEPATIC FUNCTION+C.LAB.BRZ ordered. EDMS EDMS 08:04 08:03 MAGNESIUM+C.LAB.BRZ ordered. EDMS EDMS 08:04 08:03 PROBNP+C.LAB.BRZ ordered. EDMS EDMS 08:04 08:03 Troponin High Sensitivity+C.LAB.BRZ ordered. EDMS EDMS 08:04 08:03 CREATINE PHOSPHOKINASE+C.LAB.BRZ ordered. EDMS EDMS 08:04 08:04 Head Brain Wo Cont+CT.RAD.BRZ ordered. EDMS EDMS 11:47 10:48 rt eb
--- NOTE | 2024-03-20 10:48 | ER ---
Nurse's Notes [facility] Name: Pernell Serrano Age: 88 yrs Sex: Male : 1935 Arrival Date: 03/20/2024 Time: 07:45 Bed 7 Private MD: Diagnosis: Transient ischemic attack;Cough Presentation: 03/20 07:50 Chief complaint: Pt's reports cough x 2 days ago, restlessness yesterday, aa5 confusion today, pt's states "when he talks he is not making sense, he is saying crazy stuff". 07:50 Coronavirus screen: cough unrelated to allergies. Ebola Screen: Patient denies travel aa5 to an Ebola-affected area in the 21 days before illness onset. Initial Sepsis Screen: Does the patient meet any 2 criteria? No. Patient's initial sepsis screen is negative. Does the patient have a suspected source of infection? No. Patient's initial sepsis screen is negative. Risk Assessment: Do you want to hurt yourself or someone else? Patient reports no desire to harm self or others. Onset of symptoms was March 20, 2024. 07:50 Acuity: ROBIN 2 aa5 07:50 Method Of Arrival: Wheelchair aa5 Historical: - Allergies: 07:57 PENICILLINS; aa5 - Home Meds: 08:12 amlodipine 5 mg oral tablet [Active]; losartan 100 mg Oral tab 1 tab once daily db [Active]; atorvastatin 10 mg oral tablet daily [Active]; triamterene-hydrochlorothiazid 37.5-25 mg Oral tablet once [Active]; tamsulosin 0.4 mg oral capsule once [Active]; solifenacin 5 mg oral tablet [Active]; - PMHx: 07:57 colon cancer; Hypertension; Prostate Cancer (Hypertension); "LEG SWELLING" (Unknown); aa5 - PSHx: 07:57 Colostomy; aa5 - Immunization history:: Adult Immunizations unknown. - Infectious Disease History:: Denies. - Family history:: not pertinent. - Social history:: Smoking status: Patient denies any tobacco usage or history of. Screenin:16 [facility] ED Fall Risk Assessment (Adult) History of falling in the last 3 months, db including since admission No falls in past 3 months (0 pts) Confusion or Disorientation Yes (5 pts) Intoxicated or Sedated No (0 pts) Impaired Gait Yes (1 pt) Mobility Assist Device Used Yes (1 pt) Altered Elimination No (0 pt) Score/Fall Risk Level 0 - 2 = Low Risk Oriented to surroundings, Maintained a safe environment. Abuse screen: Denies threats or abuse. Denies injuries from another. Nutritional screening: No deficits noted. Tuberculosis screening: No symptoms or risk factors identified. Assessment: 08:16 Reassessment: Patient appears in no apparent distress at this time. Patient and/or db family updated on plan of care and expected duration. Pain level reassessed. General: Appears in no apparent distress. comfortable, Behavior is calm, cooperative, appropriate for age. Pain: Denies pain. Neuro: Level of Consciousness is awake, alert, obeys commands, Oriented to person. Respiratory: Airway is patent Respiratory effort is even, unlabored, Respiratory pattern is regular, symmetrical. 11:09 Reassessment: Patient appears in no apparent distress at this time. Patient and/or db family updated on plan of care and expected duration. Pain level reassessed. Neuro: Level of Consciousness is awake, alert, obeys commands, Oriented to person, place. 11:10 GI: db 12:30 Reassessment: Patient appears in no apparent distress at this time. No changes from db previously documented assessment. Patient and/or family updated on plan of care and expected duration. Pain level reassessed. Vital Signs: 07:50 BP 166 / 85; Pulse 68; Resp 20 S; Temp 98.7(O); Pulse Ox 96% on R/A; aa5 09:00 BP 145 / 79; Pulse 65; Resp 16; Pulse Ox 95% ; db 10:03 BP 149 / 89; Pulse 63; Resp 19 S; Pulse Ox 95% on R/A; kc6 11:00 BP 149 / 81; Pulse 79; Resp 16; Pulse Ox 96% on R/A; db 12:00 BP 138 / 73; Pulse 58; Resp 16; Pulse Ox 95% ; db ED Course: 07:49 Patient arrived in ED. im 07:49 Papito Chaudhry MD is Attending Physician. rt 07:50 Arm band placed on Patient placed in an exam room, in the treatment room. aa5 07:59 Triage completed. aa5 08:11 Mcclain, Angela, RN is Primary Nurse. db 08:[address] via stretcher. db 08:18 Initial lab(s) drawn, by me, sent to lab. Inserted saline lock: 20 gauge in right em1 antecubital area, using aseptic technique. Blood collected. Flushed with 10 mL NS. 08:25 CT Head Brain wo Cont In Process Unspecified. EDMS 09:10 XRAY Chest (1 view) In Process Unspecified. EDMS 10:47 Aurelio Herrmann MD is Hospitalizing Provider. rt 11:10 Patient has correct armband on for positive identification. Bed in low position. Call db light in reach. Side rails up X2. Pulse ox on. NIBP on. Warm blanket given. 12:30 Provided Education on: ADMISSION. db 12:30 No provider procedures requiring assistance completed. Patient admitted, IV remains in db place. Administered Medications: 10:05 Drug: Aspirin PO 325 mg PO once Route: PO; db 12:34 Follow up: Response: No adverse reaction db Medication: 08:16 VIS not applicable for this client. db Outcome: 10:48 Decision to Hospitalize by Provider. rt 12:30 Admitted to Med/surg accompanied by tech, via stretcher, room 212, db 12:30 Condition: stable 12:30 Instructed on the need for admit, 12:34 Patient left the ED. db Signatures: Dispatcher [employer] NICOLE ShanDima em1 Genie Montes, RN RN aa5 Toya Horne RN RN kc6 Angela Mcclain, SPENCER RN db Papito Chaudhry MD MD rt Treasure Lanier Corrections: (The following items were deleted from the chart) 11:10 08:16 [facility] ED Fall Risk Assessment (Adult) History of falling in the last 3 months, db including since admission No falls in past 3 months (0 pts) Confusion or Disorientation Yes (5 pts) Intoxicated or Sedated No (0 pts) Impaired Gait No (0 pts) Mobility Assist Device Used No (0 pt) Altered Elimination No (0 pt) Score/Fall Risk Level 0 - 2 = Low Risk Oriented to surroundings, Maintained a safe environment, db
--- NOTE | 2024-03-20 12:14 | P.HP ---
Certification for Inpatient Patient admitted to: Inpatient With expected LOS: >2 Midnights Patient will require the following post-hospital care: Home Health Services Practitioner: I am a practitioner with admitting privileges, knowledge of patient current condition, hospital course, and medical plan of care. Services: Services provided to patient in accordance with Admission requirements found in Title 42 Section 412.3 of the Code of Federal Regulations Patient History Date of Service: 03/20/24 Primary Care Provider: Alize Reason for admission: TIA History of Present Illness: Patient was brought in by his . He was having some confusion. Speaking with well formed words. However sometimes having difficulty speaking and responding. Sometime staring. He had a URTI symptoms the last few nights. He had a negative CT scan. He seems to be back to his baseline per his family. the patient state he has had no falls. No injuries. No recent drugs or alcohol. Allergies Penicillins Allergy (Intermediate, Verified 09/10/19 01:15) Itching/Hives/Rash Home Medications: Amlodipine Besylate 10 mg PO DAILY 09/10/19 Aspirin [Aspirin EC 81 MG] 81 mg PO DAILY 09/10/19 Atorvastatin Calcium [Lipitor*] 10 mg PO DAILY 09/10/19 Docusate [Colace Cap*] 100 mg PO DAILY 09/10/19 Losartan Potassium 100 mg PO DAILY 09/10/19 - Past Medical/Surgical History Diabetic: No -: hx of Prostate CA -: hx of colon CA -: HX BLOOD CLOT LUNG -: colon resection -: colostomy -: removal of Left superficial inguinal lymph nodes - Social History Alcohol use: Yes CD- Drugs: No Caffeine use: Yes Review of Systems 10-point ROS is otherwise unremarkable Neurological: Change in Speech, Confusion Physical Examination - Physical Exam General: Alert, In no apparent distress HEENT: Atraumatic, PERRLA, Mucous membr. moist/pink, EOMI, Sclerae nonicteric Neck: Supple, 2+ carotid pulse no bruit, No LAD, Without JVD or thyroid abnormality Respiratory: Clear to auscultation bilaterally, Normal air movement Cardiovascular: Regular rate/rhythm, Normal S1 S2 Gastrointestinal: Normal bowel sounds, No tenderness Musculoskeletal: No tenderness Integumentary: No rashes Neurological: Normal gait, Normal speech, Normal strength at 5/5 x4 extr, Normal tone, Normal affect Lymphatics: No axilla or inguinal lymphadenopathy - Studies Laboratory Data (last 24 hrs) 03/20/24 03/20/24 08:14 08:14 WBC 6.40 Hgb 10.5 L Hct 32.4 L Plt Count 254 Sodium 138 Potassium 3.8 BUN 19 H Creatinine 1.29 Glucose 105 Magnesium 2.2 Total Bilirubin 0.5 AST 17 ALT 15 L Alkaline Phosphatase 52 Assessment and Plan - Problems (Diagnosis) (1) TIA (transient ischemic attack) Current Visit: Yes Status: Acute Plan: will order an MRI. consult Dr. Messer. start the patient on asp, statin high dose, magnesium and folic acid. Will have PT and speach see the patient. (2) Essential (primary) hypertension Current Visit: Yes Status: Acute Plan: restart the losartan. Hold the amlodipine and chlorthalidone. Want some permissive hypercapnia for the 1st 24-48 hours. Aim for a map of 90's (3) BPH (benign prostatic hyperplasia) Current Visit: Yes Status: Acute Plan: restart tamusolin Qualifiers: Lower urinary tract symptom presence: symptoms absent Qualified Code(s): N40.0 - Benign prostatic hyperplasia without lower urinary tract symptoms Discharge Plan: Home Plan to discharge in: 72 Hours - Advance Directives Does patient have a Living Will: No Does patient have a Durable POA for Healthcare: No - Code Status/Comfort Care Code Status Assessed: No Physician Review: Patient Assessed, Agree with Above Assessment and Plan Critical Care: No Time Spent Managing Pts Care (In Minutes): 70
[2024-03-20] MEDS ORDERED: LORazepam 2 MG/ML VIAL IV PRN (13:12)
[2024-03-20 13:15] VITALS: BMI 28.5
[2024-03-20] MEDS: THIAMINE 200 MG/2 ML INJ IVP ONE (14:53)
[2024-03-20 15:00] LABS: PT Prothrombin Time 12.1 SECONDS (9.4-12.5); Protime INR 1.08
[2024-03-20 15:38] LABS: Barbiturates NEGATIVE (NEGATIVE); Benzodiazepines NEGATIVE (NEGATIVE); Cocaine NEGATIVE (NEGATIVE); METHAMPHETAM NEGATIVE (NEGATIVE); Methadone NEGATIVE (NEGATIVE); Opiates NEGATIVE (NEGATIVE); Phencyclidine NEGATIVE (NEGATIVE); THC Cannibis NEGATIVE (NEGATIVE)
[2024-03-20 15:45] LABS: Specific Gravity 1.017 (1.005-1.030); Sqamous Epithelial None Seen /HPF (None Seen); Urine Bacteria None Seen /HPF (<20); Urine Bilirubin NEGATIVE (Negative); Urine Blood Negative (Negative); Urine Clarity Clear (Clear); Urine Color Light-Yellow (Yellow); Urine Culture Reflex Order NOT NEEDED; Urine Glucose NEGATIVE (Negative); Urine Ketones NEGATIVE (Negative); Urine Microscopic Reflex YN ORDER UMIC; Urine Mucus Slight /HPF (None Seen); Urine Nitrite NEGATIVE (Negative); Urine Protein TRACE (Negative); Urine RBC <5 /HPF (None Seen); Urine Urobilinogen Normal (Normal); Urine WBC <5 /HPF (<5); Urine pH 6.5 (5.0-7.0)
[2024-03-20] MEDS ORDERED: ATORVASTATIN 80 MG TAB PO SCH (21:00)
[2024-03-21 06:20] LABS: Absolute Lymphocytes (CBC) 0.9 K/uL (0.7-4.9); Absolute Monocytes 1.1 K/uL (0.1-1.3); Absolute Neutrophil 4.3 K/uL (1.8-8.0); Basophils % 0.6 % (0-1.3); Eosinophils % 0.4 % (0-4.4); Hematocrit 30.6 % (39.6-49.0); Hemoglobin 10.2 g/dL (13.6-17.9); Lymphocytes % 14.1 % (15.3-44.8); MCHC 33.3 g/dL (32.0-36.0); MCV 87.1 fL (80-100); MPV 6.4 fL (7.6-11.3); Monocytes % 17.8 % (3.3-12.3); Neutrophils % 67.1 % (41.7-73.7); Nucleated Red Blood Cells % 0.1 % (0-0); Platelets 245 thou/uL (152-406); RBC Red Blood Cell Count 3.51 M/uL (4.33-5.43); Red Cell Distribution Width 15.6 % (12.1-15.2)
[2024-03-21 06:37] LABS: Albumin 3.1 g/dL (3.4-5.0); Albumin/Globulin Ratio 0.9 (1.1-1.8); Anion Gap 5.8 mEq/L (5.0-15.0); Bilirubin Total 0.4 mg/dL (0.2-1.0); Globulin 3.4 g/dL (2.3-3.5); Potassium 3.8 mEq/L (3.5-5.1); Protein, Total 6.5 g/dL (6.4-8.2); Thyroid Stimulating Hormone 1.05 uIU/mL (0.358-3.740)
[2024-03-21] MEDS ORDERED: DOCUSATE NA 100 MG CAP PO SCH (09:00)
[2024-03-21] MEDS ORDERED: MAGNESIUM CHLORIDE 64 MG TAB PO SCH (09:00)
[2024-03-21] MEDS ORDERED: FOLIC ACID 1 MG TABLET PO SCH (09:00)
[2024-03-21] MEDS ORDERED: FOLIC ACID 5 MG/ML VIAL IVP SCH (09:00)
[2024-03-21] MEDS ORDERED: ASPIRIN EC 81 MG TAB PO SCH (09:00)
[2024-03-21] MEDS ORDERED: CHLORTHALIDONE 25 MG TAB PO SCH (09:00)
[2024-03-21] MEDS ORDERED: LOSARTAN POTASSIUM 50 MG TABLET PO SCH (09:00)
[2024-03-21] MEDS ORDERED: TAMSULOSIN 0.4 MG SR CAP PO SCH (09:00)
[2024-03-21] MEDS: MULTIVITAMIN TAB PO SCH (09:21)
[2024-03-21] MEDS: LOSARTAN POTASSIUM 50 MG TABLET PO SCH (09:21)
[2024-03-21] MEDS: TAMSULOSIN 0.4 MG SR CAP PO SCH (09:21)
--- NOTE | 2024-03-21 11:10 | P.PN ---
Subjective Date of Service: 03/21/24 Primary Care Provider: Alize Chief Complaint: TIA Subjective: No new changes Review of Systems 10-point ROS is otherwise unremarkable ENT: Nose Congestion Respiratory: Cough Physical Examination - Vital Signs Temperature: 98.4 F Blood Pressure: 151/70 Pulse: 63 Respirations: 14 Pulse Ox (%): 91 - Physical Exam General: Alert, In no apparent distress HEENT: Atraumatic, PERRLA, EOMI Neck: Supple, JVD not distended Respiratory: Clear to auscultation bilaterally, Normal air movement Cardiovascular: Regular rate/rhythm, Normal S1 S2 Gastrointestinal: Normal bowel sounds, No tenderness Musculoskeletal: No tenderness Integumentary: No rashes Neurological: Normal speech, Normal tone, Normal affect Lymphatics: No axilla or inguinal lymphadenopathy Assessment And Plan - Current Problems (Diagnosis) (1) TIA (transient ischemic attack) Current Visit: Yes Status: Acute Plan: will order an MRI. consult Dr. Messer. start the patient on asp, statin high dose, magnesium and folic acid. Will have PT and speach see the patient. (2) Essential (primary) hypertension Current Visit: Yes Status: Acute Plan: restart the losartan. Hold the amlodipine and chlorthalidone. Want some permissive hypercapnia for the 1st 24-48 hours. Aim for a map of 90's (3) BPH (benign prostatic hyperplasia) Current Visit: Yes Status: Acute Plan: restart tamusolin Qualifiers: Lower urinary tract symptom presence: symptoms absent Qualified Code(s): N40.0 - Benign prostatic hyperplasia without lower urinary tract symptoms (4) Cough Current Visit: Yes Status: Acute Plan: will add decongestants Qualifiers: Cough type: acute Qualified Code(s): R05.1 - Acute cough Physician Review: Patient Assessed, Agree with Above Assessment and Plan Critical Care: No Time Spent Managing PTS Care (In Minutes): 20
[2024-03-22 06:34] LABS: Absolute Lymphocytes (CBC) 0.9 K/uL (0.7-4.9); Absolute Monocytes 0.9 K/uL (0.1-1.3); Absolute Neutrophil 3.6 K/uL (1.8-8.0); Basophils % 0.4 % (0-1.3); Eosinophils % 0.6 % (0-4.4); Hematocrit 29.7 % (39.6-49.0); Hemoglobin 10.1 g/dL (13.6-17.9); Lymphocytes % 17.3 % (15.3-44.8); MCH 29.4 pg (27.0-35.0); MCV 86.5 fL (80-100); MPV 6.2 fL (7.6-11.3); Monocytes % 16.1 % (3.3-12.3); Neutrophils % 65.6 % (41.7-73.7); Nucleated Red Blood Cells % 0.2 % (0-0); Platelets 218 thou/uL (152-406); RBC Red Blood Cell Count 3.44 M/uL (4.33-5.43); Red Cell Distribution Width 15.7 % (12.1-15.2)
[2024-03-22 07:08] LABS: Albumin 2.9 g/dL (3.4-5.0); Albumin/Globulin Ratio 0.9 (1.1-1.8); Anion Gap 5.5 mEq/L (5.0-15.0); Bilirubin Total 0.4 mg/dL (0.2-1.0); Globulin 3.1 g/dL (2.3-3.5); Potassium 3.5 mEq/L (3.5-5.1)
[2024-03-22 10:05] VITALS: O2SAT 97
--- NOTE | 2024-03-22 12:13 | RAD REPORT ---
EXAM DESCRIPTION: MRI - Brain W/Wo Cont - 03/22/2024 11:21 am CLINICAL HISTORY: AMS. TIA COMPARISON: Noncontrast head CT 03/20/2024 TECHNIQUE: Multiplanar multisequence MRI of the brain performed before and after intravenous adminis tration of 20 mL MultiHance. FINDINGS: No evidence of acute infarct or other diffusion signal abnormality. No evidence of acute intracranial hemorrhage or abnormal extra-axial fluid collections. Mild diffuse parenchymal volume loss. Ventricular caliber otherwise within normal for age. Midline st ructures are unremarkable. Mild periventricular white matter T2/FLAIR hyperintensities, nonspecific, but suggestive of chronic s mall vessel ischemic changes. No mass effect or midline shift. Major vascular flow voids are preserved. Mild dolichoectasia of the basilar artery noted. No evidence of an intracranial mass or abnormal enhancement. Bilateral ocular lens replacements noted. Mastoid air cells and paranasal sinuses are clear. IMPRESSION: No acute intracranial process. No evidence of abnormal enhancement or mass effect. Mild periventricular nonspecific white matter signal abnormalities, suggestive of mild chronic small vessel ischemic changes. Mild dolichoectasia of the basilar artery.
[2024-03-22 12:39] VITALS: BP 124/58; TEMP 97.5
--- NOTE | 2024-03-22 13:22 | P.DS ---
Admission Date: 03/22/24 Discharge Date: 03/22/24 Primary Care Provider: Alize Reason for Admission: TIA - Problems (1) TIA (transient ischemic attack) Current Visit: Yes Status: Acute (2) Essential (primary) hypertension Current Visit: Yes Status: Acute (3) BPH (benign prostatic hyperplasia) Current Visit: Yes Status: Acute Qualifiers: Lower urinary tract symptom presence: symptoms absent Qualified Code(s): N40.0 - Benign prostatic hyperplasia without lower urinary tract symptoms (4) Cough Current Visit: Yes Status: Acute Qualifiers: Cough type: acute Qualified Code(s): R05.1 - Acute cough Brief History of Present Illness: Patient was brought in by his . He was having some confusion. Speaking with well formed words. However sometimes having difficulty speaking and responding. Sometime staring. He had a URTI symptoms the last few nights. He had a negative CT scan. He seems to be back to his baseline per his family. the patient state he has had no falls. No injuries. No recent drugs or alcohol. Hospital Course: Patient came in for TIA. He had a negative CT and MRI. Will have him seen by Dr. Messer. Will start him on asa, statin low dose, magnesium and folic acid. Have the patient follow up with me in a week. Thank you for allowing me to take part in her care. Vital Signs/Physical Exam: Temp Pulse Resp BP Pulse Ox 97.5 F 62 20 124/58 L 95 03/22/24 12:00 03/22/24 12:00 03/22/24 12:00 03/22/24 12:00 03/22/24 12:00 General: Alert, In no apparent distress HEENT: Atraumatic, PERRLA, EOMI Neck: Supple, JVD not distended Respiratory: Clear to auscultation bilaterally, Normal air movement Cardiovascular: Regular rate/rhythm, Normal S1 S2 Gastrointestinal: Normal bowel sounds, No tenderness Musculoskeletal: No tenderness Integumentary: No rashes Neurological: Normal speech, Normal tone, Normal affect Lymphatics: No axilla or inguinal lymphadenopathy Laboratory Data at Discharge: WBC 5.40 thou/uL (4.3-10.9) 03/22/24 06:18 Hgb 10.1 g/dL (13.6-17.9) L 03/22/24 06:18 Hct 29.7 % (39.6-49.0) L 03/22/24 06:18 Plt Count 218 thou/uL (152-406) 03/22/24 06:18 PT 12.1 SECONDS (9.4-12.5) 03/20/24 14:08 INR 1.08 03/20/24 14:08 Sodium 139 mEq/L (136-145) 03/22/24 06:18 Potassium 3.5 mEq/L (3.5-5.1) 03/22/24 06:18 BUN 23 mg/dL (7-18) H 03/22/24 06:18 Creatinine 1.19 mg/dL (0.70-1.30) 03/22/24 06:18 Glucose 106 mg/dL (74-106) 03/22/24 06:18 Magnesium 2.0 mg/dL (1.6-2.4) 03/21/24 05:29 Total Bilirubin 0.4 mg/dL (0.2-1.0) 03/22/24 06:18 AST 23 U/L (15-37) 03/22/24 06:18 ALT 18 U/L (16-61) 03/22/24 06:18 Alkaline Phosphatase 41 U/L (45-117) L 03/22/24 06:18 Triglycerides 53 mg/dL (<150) 03/21/24 05:29 Cholesterol 94 mg/dL (<200) 03/21/24 05:29 HDL Cholesterol 50 mg/dL (40-60) 03/21/24 05:29 Cholesterol/HDL Ratio 1.88 03/21/24 05:29 Home Medications: Amlodipine Besylate 5 mg PO DAILY 09/10/19 Atorvastatin Calcium [Lipitor*] 10 mg PO DAILY 09/10/19 Losartan Potassium 100 mg PO DAILY 09/10/19 Solifenacin [Vesicare] 5 mg PO DAILY 03/20/24 Tamsulosin [Flomax*] 0.4 mg PO DAILY 03/20/24 Triamterene/Hydrochlorothiazid [Triamterene-Hctz 37.5-25 mg Tb] 37.5 mg PO DAILY 03/20/24 Aspirin [Aspirin EC 81 MG] 81 mg PO DAILY 90 Days #90 tab 03/22/24 Atorvastatin Calcium 10 mg PO BEDTIME 90 Days #90 tab 03/22/24 Fluticasone [Flonase 50MCG Nasal [place]*] 2 sprays NS DAILY #30 btl 03/22/24 Folic Acid 1 mg PO DAILY 90 Days #90 tab 03/22/24 Magnesium Oxide 250 mg PO AC 15 Days #30 tab 03/22/24 New Medications: Aspirin [Aspirin EC 81 MG] 81 mg PO DAILY 90 Days #90 tab Atorvastatin Calcium 10 mg PO BEDTIME 90 Days #90 tab Fluticasone [Flonase 50MCG Nasal [place]*] 2 sprays NS DAILY #30 btl Folic Acid 1 mg PO DAILY 90 Days #90 tab Magnesium Oxide 250 mg PO AC 15 Days #30 tab Diet: Regular Activity: Ad missael Followup: Aurelio Herrmann MD [Primary Care Provider] - Physician Review: Patient Assessed, Agree with Above Assessment and Plan Time spent managing pt's care (in minutes): 30
--- NOTE | 2024-03-22 17:04 | EKG ---
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
--- NOTE | 2024-03-22 17:04 | EKG ---
Test Date: 2024-03-20 Test Time: 08:08:00 Network Architect: CHADD MEASUREMENT RESULTS: Intervals: Rate: 65 TN: 216 QRSD: 152 QT: 440 QTc: 457 Supply: P: 73 TN: 216 QRS: -51 T: -13 INTERPRETIVE STATEMENTS: Sinus rhythm with 1st degree AV block Left axis deviation Right bundle branch block Abnormal ECG Compared to ECG 09/09/2019 21:00:11 Left-axis deviation now present Right bundle-branch block now present Myocardial infarct finding no longer present Electronically Signed On 03-22-24 16:58:51 CDT by Ridge Malik
== END 2024-03-22 14:20 | disposition home or self-care (01) | DRG 69 ==
LOC: ER 07:45 → ERHOLD 10:59 → 2ND 12:14 → OBSVTOIN 03-22 13:08
PROVIDERS: ADMIT Internal Medicine; ATTEND Internal Medicine
DX: G45.9 Transient cerebral ischemic attack, unspecified (principal); N40.0 Benign prostatic hyperplasia without lower urinary tract symptoms; I10 Essential (primary) hypertension; R05.1 Acute cough; Z93.3 Colostomy status; Z88.0 Allergy status to penicillin; Z79.82 Long term (current) use of aspirin; Z85.46 Personal history of malignant neoplasm of prostate; Z90.49 Acquired absence of other specified parts of digestive tract; Z79.899 Other long term (current) drug therapy; Z85.038 Personal history of other malignant neoplasm of large intestine
CPT/HCPCS: 36415; 70450; 70553; 71045; 80048; 80053; 80061; 80076; 80307; 81001; 82077; 82140; 82550; 82947; 83735; 83880; 84443; 84484; 85025; 85610; 93005; 97116; 97161; 99285; A9577; G0378; J3411